=== PATIENT | male | born 1990 | race Caucasian/White ===

== ENCOUNTER 2020-03-14 11:34 | Inpatient (IN) ==
[2020-03-14] MEDS ORDERED: 0.9 % SODIUM CHLORIDE 1,000 ML IV ONE ×2 (11:58→13:46)
[2020-03-14] MEDS ORDERED: ONDANSETRON 4 MG/2 ML VIAL IV ONE (11:58)
[2020-03-14] MEDS ORDERED: KETOROLAC 30 MG/ML VIAL IV ONE (11:58)
--- NOTE | 2020-03-14 12:12 | Emergency Department Note ---
HPI General Chief complaint: Constipation Stated complaint: constipation and weakness Time Seen by Provider: 03/14/20 11:42 Source: patient Mode of arrival: ambulatory Limitations: no limitations History of Present Illness HPI Narrative: Narrative: 29-year-old male patient presents to the emergency department with chief complaint of fulminant weakness, diffuse tingling throughout his body, twisting type chest pain, nausea, vomiting, and abdominal pain x5 days. Patient mentions all of his symptoms started around Tuesday. These have progressively worsened. He was evaluated [facility]'s emergency department on 03/11 and during that visit he was worked up by the ER provider there. During his work-up he was noted to be afebrile. His laboratory studies did show an elevated WBC of 17.4 without a discernible cause. This prompted the ER provider to order a CT scan of his abdomen with contrast. This was read by matt renee radiologist as no acute abdominal pathology. A review the ER note does mention mild esophageal thickening consistent with GERD. His EKG at that time was normal. He was treated with IV rehydration, Dilaudid, Protonix, and Zofran. Patient tells me his symptoms have persisted since then. ROS: Admits to systemic illness, fever, sweats, chills. Denies headaches, tinnitus, or vision changes. Denies runny nose, sinus congestion, or cough. Denies shortness of breath. Admits to retrosternal chest pain or palpitations. Admits to abdominal pain, nausea, and vomiting, and constipation. Patient's last bowel movement was Tuesday. Admits to dysuria. Denies penile discharge, urinary frequency, or urinary urgency. Admits to generalized weakness. Admits to generalized myalgias. Related Data Home Medications Medication Instructions Recorded Confirmed omeprazole 40 mg PO ACB 03/14/20 03/14/20 Allergies Allergy/AdvReac Type Severity Reaction Status Date / Time penicillamine Allergy Unknown Unknown Verified 03/14/20 16:07 Review of Systems ROS ROS Narrative: Narrative: All systems ED: reviewed and negative except as stated. [facility] Narrative Patient History Narrative: Narrative: Medical/Surgical/Family History All Active Problems (Updated 03/14/20 @ 16:00 by iVneet Suarez PA-C) Nausea and vomiting in adult (Acute) Migraine headache (Acute) Shoulder pain (Acute) Nausea & vomiting (Acute) Abdominal pain (Acute) Constipation (Acute) Rib pain on right side (Acute) Acute hypokalemia (Acute) Acute hyponatremia (Acute) Hyperbilirubinemia (Acute) Acute renal failure (Acute) Acute dehydration (Acute) Medical History Migraine headache (Acute) Nausea and vomiting in adult (Acute) Social History Smoking Status: Former smoker Exam Narrative Narrative: Narrative: General Limitations: no limitations General appearance: Present other (Well-developed, well-nourished, 29-year-old male patient laying semirecumbent on the emergency room gurney. He is in no acu te respiratory distress. However he does appear uncomfortable. He is afebrile with normal vital signs.) Head Head: Present atraumatic and normocephalic Eye Eye: Present normal appearance, PERRL and EOMI; Absent scleral icterus and conjunctival injection ENT ENT: Present normal oropharynx and mucous membranes dry Neck Neck: Present normal inspection, full ROM and trachea midline; Absent tenderness, meningismus and lymphadenopathy Chest Chest: Present symmetric chest wall rise Respiratory Respiratory: Present normal lung sounds bilaterally; Absent respiratory distress, rales/crackles, wheezes, stridor, accessory muscle use, prolonged expiratory phase and decreased breath sounds Cardiovascular Cardiovascular: Present regular rate and normal rhythm; Absent systolic murmur and diastolic murmur Adbominal Abdominal: Present soft and tenderness; Absent distention, guarding, rebound, rigidity, organomegaly and mass Expanded Abdominal Abdominal Tenderness: Present LUQ and mild Extremities Extremities: Present normal inspection, full ROM and normal capillary refill; Absent pedal edema Back Back: Present normal inspection and full ROM; Absent CVA tenderness (R) and CVA tenderness (L) Expanded Neurological Patient oriented to: Present person, place and time Speech: Present fluid speech CRANIAL NERVES: EOM function (II, III, IV, ): Normal, facial sensation (V): Normal, facial palsy (VII): Normal, gag reflex (IX): Normal, spinal accessory function (XI): Normal and tongue deviation (XII): Normal CEREBELLAR FUNCTION: normal gait Motor strength - LUE: 5/5 Motor strength - RUE: 5/5 Motor strength - LLE: 5/5 Motor strength - RLE: 5/5 SENSORY EXAM UPPER EXTREMITY: Normal: light touch SENSORY EXAM LOWER EXTREMITY: Normal: light touch DTR: 2+: biceps (L), biceps (R), patellar (L) and patellar (R) Coma Scale Eye Opening: Spontaneous Coma Scale Motor Response: Obeys Commands Coma Scale Verbal Response: Oriented Coma Scale Total: 15 Psychiatric Psychiatric: Present normal affect and anxious Skin Skin: Present warm (WNL), dry and normal color Course Course Course Narrative: The differential diagnosis of acute weakness in the adult p christophe is rather extensive and can be broken down into the following categories: Life-threatening central causes of unilateral weakness: Ischemic stroke, intracerebral hemorrhage, subarachnoid hemorrhage. Other life-threatening causes of bilateral weakness: Brainstem stroke, spinal cord diseases, peripheral nerve diseases (Guillain-Suggs syndrome), myasthenia gravis, botulism, alcoholic myopathy. Life-threatening medical causes: Hypoglycemia and electrolyte disorders (potassium, calcium, and magnesium). Life-threatening causes of generalized weakness: Sepsis, ACS, CO2 poisoning, adrenal insufficiency. Other neurologic causes: Multiple sclerosis, hemiplegic migraine, and postictal paralysis. Other medical causes of generalized weakness: Hypothyroidism, infections, anemia, dehydration, presyncope, multiple medications (beta-blockers, diuretics, chemotherapy, opioids, and alcohol), and rheumatologic diseases. Patient's initial complaint was fulminant weakness and tingling throughout his body. However through his ROS she did complain of some chest pain and dysuria. He has no focal neurologic findings on physical exam. I do not think neuroimaging is warranted at this time. We are going to order some screening laboratory studies including ACS labs. We are going to get an EKG. She has not had a bowel movement since Tuesday but did have a CT scan of his abdomen done 3 days ago it was considered normal. We are going to get chest x-ray and a abdominal x-ray series. We are to treat his nausea with Zofran 4 mg IVP. I will treat some of his aches and pains with Toradol 30 mg IVP. Patient was given normal saline 1000 mL as a bolus. Reevaluation(s) Reevaluation #1: A review of the patient's diagnostics show the following: CBC WBC 15.3, RBC 5.88, hemoglobin 17.2, hematocrit 47.5, platelets 436. Lactic acid 2.0. CMP sodium 123, potassium 2.5, chloride 71, CO2 33, anion gap 19, BUN 40, creatinine 1.5, glucose 124, total bilirubin 2.2, AST 52, ALT 42, albumin 5.3, all others normal limits. Procalcitonin 0.08. Opponent pending. Magnesium pending. Upon reevaluation patient complaining of worsening chest pain. He describes the pain as "like someone is punching me in the heart". He does have considerable hypokalemia in conjunction with hyponatremia. He was given potassium chloride 40 mEq p.o. with an additional 20 mEq IV. He was given additional normal saline 1000 mL as a bolus. Repeat EKG was requested. ABG returned showing pH 7.54, PCO2 47, PO2 67, HCO3 40.2. Time: 13:50 Reevaluation #2: Chest and abdomen radiographs were read as negative studies. Magnesium was normal at 2.6. After reviewing all the data so far. An ultrasound of the patient's gallbladder was ordered that also was read by the radiologist as negative study. I discussed the case at length with my collaborating physician (Dr. French). At this time patient is hypokalemic, hyponatremic, and acute renal failure with an elevated total bilirubin. He is going to need admission to the hospital for further evaluation and management. Knowing this, I reached out to our hospitalist (Dr. Frazier) and discussed the case with him. At this time Dr. Frazier has consented to receive the patient here to our facility. All further treatment decisions, modalities, and ultimate patient disposition will be carried out by the hospitalist. Time: 15:58 Vital Signs Vital signs: Vital Signs Temperature 98.8 F 03/14/20 11:35 Pulse Rate 98 H 03/14/20 11:35 Respiratory Rate 18 03/14/20 11:35 Blood Pressure 156/88 03/14/20 11:35 Pulse Oximetry (%) 98 03/14/20 11:35 Temperature 98.1 F 03/14/20 20:04 Pulse Rate 70 03/14/20 20:04 Respiratory Rate 17 03/14/20 20:04 Blood Pressure 109/64 03/14/20 20:04 Pulse Oximetry (%) 100 03/14/20 20:04 [facility] Narrative Medical decision making narrative: Narrative: Lab Data Lab results reviewed: Yes I reviewed the patient's lab results. Result diagrams: 03/14/20 12:15 03/14/20 12:15 Labs: Lab Results 03/14/20 03/14/20 03/14/20 Range/Units 12:15 12:15 12:15 WBC 15.3 H (4.5-11.0) K/mcL RBC 5.88 (4.50-5.90) M/mcL Hgb 17.2 H (13.5-16.5) g/dL Hct 47.5 (41.0-55.0) % MCV 80.8 (80.0-100.0) fL MCH 29.3 (26.0-34.0) pg MCHC 36.2 H (31.0-36.0) g/dL RDW 12.1 (11.5-14.5) % Plt Count 436 (140-440) K/mcL MPV 8.9 (7.4-10.4) fL Neut % (Auto) 78.9 H (38.0-78.0) % Lymph % (Auto) 11.7 L (15.0-49.0) % Coles % (Auto) 9.2 (1.0-12.0) % Eos % (Auto) 0 (0.0-7.0) % Baso % (Auto) 0.2 (0.0-2.0) % Lymph # (Auto) 1.78 (1.50-4.80) K/mcL Coles # (Auto) 1.41 H (0.10-0.90) K/mcL Eos # (Auto) 0 (0.00-0.70) K/mcL Baso # (Auto) 0.03 (0.00-0.20) K/mcL Absolute Neutrophils 12.03 H (1.80-8.00) K/mcL ESR (0-15) mm/hr VBG Lactic Acid 2.0 (0.5-2.0) mmol/L Sodium 123 L (133-145) mmol/L Potassium 2.5 L* (3.3-5.1) mmol/L Chloride 71 L (96-108) mmol/L Carbon Dioxide 33 H (22-30) mmol/L Anion Gap 19.0 H (8.0-16.0) BUN 40 H (6-20) mg/dL Creatinine 1.5 H (0.7-1.2) mg/dL GFR Calculation 62 Glucose 124 H (70-105) mg/dL Calcium 9.6 (8.6-10.4) mg/dL Magnesium (1.6-2.5) mg/dL Total Bilirubin 2.2 H (0.1-1.0) mg/dL AST 52 H (<40) U/L ALT 42 H (<40) U/L Alkaline Phosphatase 80 (39-117) U/L Troponin T (<0.03) ng/mL C-Reactive Protein 0.20 (0.03-0.80) mg/dL Total Protein 8.3 (5.9-8.4) gm/dL Albumin 5.3 H (3.2-5.2) gm/dL Globulin 3.0 (2.2-3.7) gm/dL Albumin/Globulin Ratio 1.8 (1.0-2.3) Procalcitonin (<0.10) ng/mL Urine Color Urine Appearance (Clear) Urine pH (5.0-9.0) Ur Specific [place] (1.000-1.035) Urine Protein (Negative) mg/dL Urine Glucose (UA) (Negative) mg/dL Urine Ketones (Negative) mg/dL Urine Occult Blood (Negative) mg/dL Urine Nitrate (Negative) Urine Bilirubin (Negative) mg/dL Urine Urobilinogen mg/dL Ur Leukocyte Esterase (Negative) /ug Urine RBC (0-1) /hpf Urine WBC (0-4) /hpf Ur Squamous Epith Cells (0-4) /hpf Ur Transition Epith Cell (0-2) /hpf Urine Bacteria (0) /hpf Hyaline Casts (0-2) /lph Urine Mucus (None) /hpf Ur Culture Indicated? 03/14/20 03/14/20 03/14/20 Range/Units 12:15 12:15 12:15 WBC (4.5-11.0) K/mcL RBC (4.50-5.90) M/mcL Hgb (13.5-16.5) g/dL Hct (41.0-55.0) % MCV (80.0-100.0) fL MCH (26.0-34.0) pg MCHC (31.0-36.0) g/dL RDW (11.5-14.5) % Plt Count (140-440) K/mcL MPV (7.4-10.4) fL Neut % (Auto) (38.0-78.0) % Lymph % (Auto) (15.0-49.0) % Coles % (Auto) (1.0-12.0) % Eos % (Auto) (0.0-7.0) % Baso % (Auto) (0.0-2.0) % Lymph # (Auto) (1.50-4.80) K/mcL Coles # (Auto) (0.10-0.90) K/mcL Eos # (Auto) (0.00-0.70) K/mcL Baso # (Auto) (0.00-0.20) K/mcL Absolute Neutrophils (1.80-8.00) K/mcL ESR (0-15) mm/hr VBG Lactic Acid (0.5-2.0) mmol/L Sodium (133-145) mmol/L Potassium (3.3-5.1) mmol/L Chloride (96-108) mmol/L Carbon Dioxide (22-30) mmol/L Anion Gap (8.0-16.0) BUN (6-20) mg/dL Creatinine (0.7-1.2) mg/dL GFR Calculation Glucose (70-105) mg/dL Calcium (8.6-10.4) mg/dL Magnesium 2.6 H (1.6-2.5) mg/dL Total Bilirubin (0.1-1.0) mg/dL AST (<40) U/L ALT (<40) U/L Alkaline Phosphatase (39-117) U/L Troponin T < 0.01 (<0.03) ng/mL C-Reactive Protein (0.03-0.80) mg/dL Total Protein (5.9-8.4) gm/dL Albumin (3.2-5.2) gm/dL Globulin (2.2-3.7) gm/dL Albumin/Globulin Ratio (1.0-2.3) Procalcitonin 0.08 (<0.10) ng/mL Urine Color Urine Appearance (Clear) Urine pH (5.0-9.0) Ur Specific [place] (1.000-1.035) Urine Protein (Negative) mg/dL Urine Glucose (UA) (Negative) mg/dL Urine Ketones (Negative) mg/dL Urine Occult Blood (Negative) mg/dL Urine Nitrate (Negative) Urine Bilirubin (Negative) mg/dL Urine Urobilinogen mg/dL Ur Leukocyte Esterase (Negative) /ug Urine RBC (0-1) /hpf Urine WBC (0-4) /hpf Ur Squamous Epith Cells (0-4) /hpf Ur Transition Epith Cell (0-2) /hpf Urine Bacteria (0) /hpf Hyaline Casts (0-2) /lph Urine Mucus (None) /hpf Ur Culture Indicated? 03/14/20 03/14/20 Range/Units 12:15 13:20 WBC (4.5-11.0) K/mcL RBC (4.50-5.90) M/mcL Hgb (13.5-16.5) g/dL Hct (41.0-55.0) % MCV (80.0-100.0) fL MCH (26.0-34.0) pg MCHC (31.0-36.0) g/dL RDW (11.5-14.5) % Plt Count (140-440) K/mcL MPV (7.4-10.4) fL Neut % (Auto) (38.0-78.0) % Lymph % (Auto) (15.0-49.0) % Coles % (Auto) (1.0-12.0) % Eos % (Auto) (0.0-7.0) % Baso % (Auto) (0.0-2.0) % Lymph # (Auto) (1.50-4.80) K/mcL Coles # (Auto) (0.10-0.90) K/mcL Eos # (Auto) (0.00-0.70) K/mcL Baso # (Auto) (0.00-0.20) K/mcL Absolute Neutrophils (1.80-8.00) K/mcL ESR 1 (0-15) mm/hr VBG Lactic Acid (0.5-2.0) mmol/L Sodium (133-145) mmol/L Potassium (3.3-5.1) mmol/L Chloride (96-108) mmol/L Carbon Dioxide (22-30) mmol/L Anion Gap (8.0-16.0) BUN (6-20) mg/dL Creatinine (0.7-1.2) mg/dL GFR Calculation Glucose (70-105) mg/dL Calcium (8.6-10.4) mg/dL Magnesium (1.6-2.5) mg/dL Total Bilirubin (0.1-1.0) mg/dL AST (<40) U/L ALT (<40) U/L Alkaline Phosphatase (39-117) U/L Troponin T (<0.03) ng/mL C-Reactive Protein (0.03-0.80) mg/dL Total Protein (5.9-8.4) gm/dL Albumin (3.2-5.2) gm/dL Globulin (2.2-3.7) gm/dL Albumin/Globulin Ratio (1.0-2.3) Procalcitonin (<0.10) ng/mL Urine Color Yellow Urine Appearance Clear (Clear) Urine pH 6.0 (5.0-9.0) Ur Specific [place] 1.027 (1.000-1.035) Urine Protein 100 A (Negative) mg/dL Urine Glucose (UA) Negative (Negative) mg/dL Urine Ketones 20 A (Negative) mg/dL Urine Occult Blood 0.03 (Negative) mg/dL Urine Nitrate Negative (Negative) Urine Bilirubin Negative (Negative) mg/dL Urine Urobilinogen Negative mg/dL Ur Leukocyte Esterase Negative (Negative) /ug Urine RBC < 1 (0-1) /hpf Urine WBC 1 (0-4) /hpf Ur Squamous Epith Cells 0 (0-4) /hpf Ur Transition Epith Cell < 1 (0-2) /hpf Urine Bacteria None (0) /hpf Hyaline Casts 12 H (0-2) /lph Urine Mucus Few A (None) /hpf Ur Culture Indicated? No Radiology Data Radiology results reviewed: Yes I reviewed the patient's radiology results. Radiology results narrative: Ordering Physician: Vineet Suarez PA-C Date of Service: 03/14/20 Procedure(s): XR chest 1V portable Accession Number(s): [id number] INDICATION: Chest pain, weakness.. Abdominal pain TECHNIQUE: seated PA chest x-ray COMPARISON: Previous chest x-ray dated 04/15/2011 FINDINGS: Lungs:Lungs are negative. No focal pulmonary parenchymal infiltrate or mass Heart, vascular:No significant cardiomegaly. Pulmonary vascularity is normal. No pulmonary edema or pulmonary congestion Mediastinum, maureen:No mediastinal widening. No hilar mass Pleura:No pleural fluid. No pleural-based mass or calcification Skeletal:Negative. IMPRESSION: 1. Negative PA chest x-ray 2. Normal change since 04/15/2011 Ordering Physician: Vineet Suarez PA-C Date of Service: 03/14/20 Procedure(s): XR abdomen 2V Accession Number(s): [id number] INDICATION: Worsening Abd pain, constipation. TECHNIQUE: Supine and upright abdomen. COMPARISON: Previous CT scan dated 07/17/2018. Previous plain film examinations at 07/16/2017, 04/15/2011 FINDINGS:There is gas within the colon. No dilated gas-filled small bowel. No air-fluid levels. Fecal material is within normal limits without evidence for significant constipation There is no pneumoperitoneum. No biliary or portal venous gas. There is no pneumatosis. No focal abnormality IMPRESSION: Negative supine and upright abdomen Interpreted and Authenticated by: Pravin Salvador 03/14/20 EKG Data EKG #1: EKG attestation: Yes I reviewed and interpreted this EKG. EKG results narrative: Twelve-lead EKG obtained showing sinus rhythm at a rate of [address] segment changes. No ectopy. Patient does have prolonged QTC at 585 but other intervals are normal. EKG #2: EKG attestation: Yes I reviewed and interpreted this EKG. EKG results narrative: Twelve-lead EKG obtained showing sinus rhythm at a rate of 72 bpm. Appears to be flipped T's in leads III possibly aVF. No ectopy. No other ST segment changes. Ongoing prolonged QTC at 517. Other normal intervals. Discharge Plan Patient/Caregiver Discharge Instructions Pt seen by [employer]ER/PA only: Yes Clinical Impression: Acute hypokalemia, Acute hyponatremia, Hyperbilirubinemia, Acute dehydration Nausea & vomiting Qualifiers: Vomiting type: unspecified Vomiting Intractability: non-intractable Qualified Code(s): R11.2 - Nausea with vomiting, unspecified Acute renal failure Qualifiers: Acute renal failure type: unspecified Qualified Code(s): N17.9 - Acute kidney failure, unspecified Patient Disposition: Xfer As Inpt ([facility]) Condition: Serious Discharge Date/Time: 03/14/20 16:35
--- NOTE | 2020-03-14 12:59 | XRay Report ---
INDICATION: Chest pain, weakness.. Abdominal pain TECHNIQUE: seated PA chest x-ray COMPARISON: Previous chest x-ray dated 04/15/2011 FINDINGS: Lungs:Lungs are negative. No focal pulmonary parenchymal infiltrate or mass Heart, vascular:No significant cardiomegaly. Pulmonary vascularity is normal. No pulmonary edema or pulmonary congestion Mediastinum, maureen:No mediastinal widening. No hilar mass Pleura:No pleural fluid. No pleural-based mass or calcification Skeletal:Negative. IMPRESSION: 1. Negative PA chest x-ray 2. Normal change since 04/15/2011 Interpreted and Authenticated by: Pravin Salvador 03/14/20
--- NOTE | 2020-03-14 13:08 | XRay Report ---
INDICATION: Worsening Abd pain, constipation. TECHNIQUE: Supine and upright abdomen. COMPARISON: Previous CT scan dated 07/17/2018. Previous plain film examinations at 07/16/2017, 04/15/2011 FINDINGS:There is gas within the colon. No dilated gas-filled small bowel. No air-fluid levels. Fecal material is within normal limits without evidence for significant constipation There is no pneumoperitoneum. No biliary or portal venous gas. There is no pneumatosis. No focal abnormality IMPRESSION: Negative supine and upright abdomen Interpreted and Authenticated by: Pravin Salvador 03/14/20
[2020-03-14 13:23] LABS: Basophils # (Auto) 0.03 K/mcL (0.00-0.20); Basophils % (Auto) 0.2 % (0.0-2.0); Eosinophils # (Auto) 0 K/mcL (0.00-0.70); Eosinophils % (Auto) 0 % (0.0-7.0); Hematocrit 47.5 % (41.0-55.0); Hemoglobin 17.2 g/dL (13.5-16.5); Lymphocytes # (Auto) 1.78 K/mcL (1.50-4.80); Lymphocytes % (Auto) 11.7 % (15.0-49.0); Mean Cell Volume 80.8 fL (80.0-100.0); Mean Corpuscular HGB Conc 36.2 g/dL (31.0-36.0); Mean Platelet Volume 8.9 fL (7.4-10.4); Monocytes # (Auto) 1.41 K/mcL (0.10-0.90); Monocytes % (Auto) 9.2 % (1.0-12.0); Neutrophils % (Auto) 78.9 % (38.0-78.0); Platelet Count 436 K/mcL (140-440); RBC 5.88 M/mcL (4.50-5.90); Red Cell Distribution Width 12.1 % (11.5-14.5); WBC 15.3 K/mcL (4.5-11.0)
[2020-03-14 13:26] LABS: ALT/SGPT 42 U/L (<40); AST/SGOT 52 U/L (<40); Albumin 5.3 gm/dL (3.2-5.2); Albumin/Globulin Ratio 1.8 (1.0-2.3); Alkaline Phosphatase 80 U/L (39-117); Bilirubin,Total 2.2 mg/dL (0.1-1.0); Blood Urea Nitrogen 40 mg/dL (6-20); Calcium 9.6 mg/dL (8.6-10.4); Carbon Dioxide 33 mmol/L (22-30); Chloride 71 mmol/L (96-108); Glomerular Filtration Rate 62; Glucose 124 mg/dL (70-105)
[2020-03-14] MEDS ORDERED: POTASSIUM CHLORIDE 20 MEQ TABLET PO ONE (13:26)
[2020-03-14] MEDS ORDERED: POTASSIUM CHLORIDE 20 MEQ in DEXTROSE 5% IN WATER 250 ML IV ONE (13:26)
--- NOTE | 2020-03-14 15:11 | Ultrasound Report ---
INDICATION: Hyperbilirubinemia, elevated LFTs, abd pain. TECHNIQUE: Grayscale and color flow Doppler spectral imaging COMPARISON: Previous CT scan dated 07/17/2018 FINDINGS: Gallbladder:Negative. No cholelithiasis. No gallbladder wall thickening or pericholecystic fluid Common bile duct:No intra or extrahepatic bile duct dilatation.. Common bile duct measures3 mm Liver:No solid or cystic hepatic mass. Liver contour is smooth. No ascites.. Liver [id number] cm Portal vein:Normal hepatopedal portal venous flow Pancreas:Visualized portions of the pancreas are normal IMPRESSION: Negative gallbladder ultrasound Interpreted and Authenticated by: Pravin Salvador 03/14/20
[2020-03-14 15:25] LABS: Appearance,Urine CLEAR (Clear); Bilirubin,Urine Negative (Negative); Color,Urine YELLOW; Culture Indicated,Urine No; Glucose,Urine (UA) Negative (Negative); Ketones,Urine 20 mg/dL (Negative); Leukocyte Esterase,Urine Negative /ug (Negative); Mucus,Urine FEW /hpf; Nitrate,Urine Negative (Negative); Protein,Urine 100 mg/dL (Negative); Specific Gravity,Urine 1.027 (1.000-1.035); Urine Blood 0.03 mg/dL (Negative); Urine Hyaline Cast 12 /lph (0-2); Urine RBC < 1 /hpf (0-1); Urine Squamous Epithelial Cell 0 /hpf (0-4); Urine Transitional Epi Cells < 1 /hpf (0-2); Urine WBC 1 /hpf (0-4); Urobilinogen,Urine Negative
[2020-03-14] MEDS ORDERED: 0.9 % SODIUM CHLORIDE 1,000 ML IV SCH ×2 (15:30→16:42)
[2020-03-14] MEDS ORDERED: PHENobarb/HYOSCY/ATROPINE/SCOP 1 DOSE BOTTLE PO ONE (15:40)
--- NOTE | 2020-03-14 15:56 | Internal Med History&Physical ---
HPI History of Present Illness Patient information: Note initiated : 03/14/20 at 3:56 pm Service Date, if different from initiated Date: [] Patient: Lefty Kam 29 y/o M admitted on for constipation and weakness. Chief Complaint: Increasing weakness, nausea and dizziness History of present illness: Mr. Kam is a 29 year old M who works in [employer]. He is in his baseline state of health until the onset of symptoms that started roughly 5 to 6 days ago with increasing nausea, abdominal pain vomiting. He also is endorses associated low-grade fever, chills. He was evaluated at [place] on the and was found to have a white count over 17.6 however following negative abdominal imaging he was discharged home as he felt better after treatment. However over the next 2 days he continued to deteriorate with worsening symptoms, loss of appetite, weakness lightheadedness dizziness he presents to the ER the second time today. Initial work-up was consistent with leukocytosis/elevated LFTs and bilirubin. Abdominal ultrasound was unremarkable. He denies substance abuse. Denies bloody stool, bloody emesis, headache or photophobia. Subsequently hospitalist service was consulted At the time of my evaluation patient is anxious. He was able to endorse history as above. He [place] recent travel other than visiting [place] Den[place] sick contacts. Denies changes in medications or taking [id number] new medications. Patient was thereafter admitted to unit for evaluation of sepsis/elevated bilirubin. Shortly after admission patient passed out in the bathroom and was noted by staff with generalized tonic-clonic seizure. Patient was moved to ICU. Started on Ativan 4 mg load along with Keppra/oral suctioning. Stat labs were ordered. CT head/chest imaging/ABG/vital profile. 2 g magnesium/calcium infusion. Patient responded well and became seizure-free after a brief episode. He is currently postictal Review of systems 10 point review system was performed and is negative except for ones cussed above PFSH PFSH All Active Problems (Updated 03/14/20 @ 16:00 by Vineet Suarez PA-C) Nausea and vomiting in adult (Acute) Migraine headache (Acute) Shoulder pain (Acute) Nausea & vomiting (Acute) Abdominal pain (Acute) Constipation (Acute) Rib pain on right side (Acute) Acute hypokalemia (Acute) Acute hyponatremia (Acute) Hyperbilirubinemia (Acute) Acute renal failure (Acute) Acute dehydration (Acute) Medical History Migraine headache (Acute) Nausea and vomiting in adult (Acute) Social History smoking status: Never smoker MEDS/ALLERGIES Home Medications and Allergies Home Medications Medication Instructions Recorded Confirmed Type omeprazole 40 mg PO ACB 03/14/20 03/14/20 History Allergies Allergy/AdvReac Type Severity Reaction Status Date / Time penicillamine Allergy Unknown Unknown Verified 03/14/20 16:07 EXAM Constitutional Vitals: Temp Pulse Resp BP Pulse Ox 98.2 F 76 20 144/70 96 03/14/20 12:53 03/14/20 15:15 03/14/20 15:15 03/14/20 15:15 03/14/20 15:15 Patient postictal/confused Head normocephalic Oral cavity moist No ear nose discharge Eye movement symmetrical Neck supple no lymphadenopathy S1-S2 regular Nonlabored breathing Nondistended nontender abdomen Lower extremity no cyanosis clubbing or joint swelling Skin no suspicious lesion Psych anxious/postictal Neuro moving all 4 extremities DATA Data Completed and Pending Labs: Labs from last 24 hours 03/14/20 03/14/20 03/14/20 13:20 12:15 12:15 WBC RBC Hgb Hct MCV MCH MCHC RDW Plt Count MPV Neut % (Auto) Lymph % (Auto) [place] % (Auto) Eos % (Auto) Baso % (Auto) Lymph # (Auto) [place] # (Auto) Eos # (Auto) Baso # (Auto) Absolute Neutrophils VBG Lactic Acid Sodium Potassium Chloride Carbon Dioxide Anion Gap BUN Creatinine GFR Calculation Glucose Calcium Magnesium 2.6 H Total Bilirubin AST ALT Alkaline Phosphatase Troponin T C-Reactive Protein Total Protein Albumin Globulin Albumin/Globulin Ratio Procalcitonin 0.08 Urine Color Yellow Urine Appearance Clear Urine pH 6.0 Ur Specific [place] 1.027 Urine Protein 100 A Urine Glucose (UA) Negative Urine Ketones 20 A Urine Occult Blood 0.03 Urine Nitrate Negative Urine Bilirubin Negative Urine Urobilinogen Negative Ur Leukocyte Esterase Negative Urine RBC < 1 Urine WBC 1 Ur Squamous Epith Cells 0 Ur Transition Epith Cell < 1 Urine Bacteria None Hyaline Casts 12 H Urine Mucus Few A Ur Culture Indicated? No 03/14/20 03/14/20 03/14/20 12:15 12:15 12:15 WBC RBC Hgb Hct MCV MCH MCHC RDW Plt Count MPV Neut % (Auto) Lymph % (Auto) [place] % (Auto) Eos % (Auto) Baso % (Auto) Lymph # (Auto) [place] # (Auto) Eos # (Auto) Baso # (Auto) Absolute Neutrophils VBG Lactic Acid 2.0 Sodium 123 L Potassium 2.5 L* Chloride 71 L Carbon Dioxide 33 H Anion Gap 19.0 H BUN 40 H Creatinine 1.5 H GFR Calculation 62 Glucose 124 H Calcium 9.6 Magnesium Total Bilirubin 2.2 H AST 52 H ALT 42 H Alkaline Phosphatase 80 Troponin T Pending C-Reactive Protein 0.20 Total Protein 8.3 Albumin 5.3 H Globulin 3.0 Albumin/Globulin Ratio 1.8 Procalcitonin Urine Color Urine Appearance Urine pH Ur Specific [place] Urine Protein Urine Glucose (UA) Urine Ketones Urine Occult Blood Urine Nitrate Urine Bilirubin Urine Urobilinogen Ur Leukocyte Esterase Urine RBC Urine WBC Ur Squamous Epith Cells Ur Transition Epith Cell Urine Bacteria Hyaline Casts Urine Mucus Ur Culture Indicated? 03/14/20 12:15 WBC 15.3 H RBC 5.88 Hgb 17.2 H Hct 47.5 MCV 80.8 MCH 29.3 MCHC 36.2 H RDW 12.1 Plt Count 436 MPV 8.9 Neut % (Auto) 78.9 H Lymph % (Auto) 11.7 L [place] % (Auto) 9.2 Eos % (Auto) 0 Baso % (Auto) 0.2 Lymph # (Auto) 1.78 [place] # (Auto) 1.41 H Eos # (Auto) 0 Baso # (Auto) 0.03 Absolute Neutrophils 12.03 H VBG Lactic Acid Sodium Potassium Chloride Carbon Dioxide Anion Gap BUN Creatinine GFR Calculation Glucose Calcium Magnesium Total Bilirubin AST ALT Alkaline Phosphatase Troponin T C-Reactive Protein Total Protein Albumin Globulin Albumin/Globulin Ratio Procalcitonin Urine Color Urine Appearance Urine pH Ur Specific [place] Urine Protein Urine Glucose (UA) Urine Ketones Urine Occult Blood Urine Nitrate Urine Bilirubin Urine Urobilinogen Ur Leukocyte Esterase Urine RBC Urine WBC Ur Squamous Epith Cells Ur Transition Epith Cell Urine Bacteria Hyaline Casts Urine Mucus Ur Culture Indicated? A/P Narrative A/P Narrative: * Sepsis unclear etiology. Abdominal imaging inconclusive. Pancultures/antibiotic coverage. Rule out CLINICAL ASSESSMENT MANAGER infection. Lumbar puncture if fever, photophobia or neck stiffness. Neuroimaging * Generalized tonic-clonic seizure-status post 4 mg Ativan/Keppra load, magnesium/calcium infusion. Stat blood gas/drug screen/biochemical profile/head CT ordered, ICU admission, neurochecks * Acute change in mental status secondary to seizure/sepsis endorgan dysfunction. * Hypokalemia 2.5, start IV and oral replacement * Hyponatremia likely secondary to solute loss from nausea vomiting. Every 4 sodium checks and target sodium rise 12 per 24 hours * Elevated bilirubin likely sepsis endorgan dysfunction, check acute hepatitis panel * acute kidney injury likely sepsis endorgan dysfunction Plan * ICU admission, [place] 2 score 16 * 4 hourly sodium check * Neuroimaging with MR head/CT * Lumbar puncture if indicated * Electrolyte replacement * Keppra load * Antibiotic coverage * Neurochecks/Seizure watch Time spent in excess of 140 minutes on management of generalized tonic-clonic seizures/admission to the hospital, this includes 75 minutes critical care time Time Spent With Patient Time: Total time spent is greater than 50% in coordination of care (as documented) at patient's floor/unit and/or counseling patient:
[2020-03-14] MEDS ORDERED: MELATONIN 3 MG TABLET PO PRN (16:42)
[2020-03-14] MEDS ORDERED: ONDANSETRON 4 MG ODT TABLET SL PRN (16:42)
[2020-03-14] MEDS ORDERED: ACETAMINOPHEN 650 MG/65 ML BOTTLE IV PRN (16:42)
[2020-03-14] MEDS ORDERED: POLYETHYLENE GLYCOL 3350 17 GM PACKET PO PRN (16:42)
[2020-03-14] MEDS ORDERED: BISACODYL 10 MG SUPP.RECT PR PRN (16:42)
[2020-03-14] MEDS ORDERED: MAGNESIUM SULFATE 2 GM/50 ML BAG IV PRN (16:42)
[2020-03-14] MEDS ORDERED: ACETAMINOPHEN 325 MG TABLET PO PRN (16:42)
[2020-03-14] MEDS: ONDANSETRON 4 MG/2 ML VIAL IV PRN ×2 (17:32→23:37)
[2020-03-14] MEDS: LACTATED RINGERS 1,000 ML IV SCH (17:51)
[2020-03-14] MEDS ORDERED: PIPERACILLIN SODIUM/TAZOBACTAM 3.375 GM in DEXTROSE 5% IN WATER 50 ML IV SCH (18:00)
[2020-03-14] MEDS ORDERED: LORazepam 2 MG/ML VIAL IV ONE (18:28)
[2020-03-14] MEDS ORDERED: levETIRAcetam 500 MG in 0.9 % SODIUM CHLORIDE 100 ML IV ONE (18:28)
[2020-03-14] MEDS: 0.9 % SODIUM CHLORIDE 10 ML SYRINGE IV SCH ×6 (18:30→23:37)
[2020-03-14] MEDS ORDERED: MAGNESIUM SULFATE 2 GM/50 ML BAG IV ONE (18:33)
[2020-03-14] MEDS ORDERED: LORazepam 2 MG/ML VIAL ONE (18:34)
[2020-03-14] MEDS ORDERED: CALCIUM GLUCONATE 4.65 MEQ/10 ML VIAL IV ONE (18:35)
[2020-03-14] MEDS ORDERED: CALCIUM GLUCONATE 4.65 MEQ/10 ML VIAL ONE (18:51)
[2020-03-14] MEDS ORDERED: CALCIUM GLUCONATE 4.65 MEQ in DEXTROSE 5% IN WATER 50 ML IV ONE (19:00)
--- NOTE | 2020-03-14 19:39 | XRay Report ---
INDICATION: r/o aspiration TECHNIQUE: AP portable upright chest x-ray COMPARISON: Previous examination dated 03/14/2020 FINDINGS: Lungs:Lungs are negative. No focal pulmonary parenchymal infiltrate or mass Heart, vascular:No significant cardiomegaly. Pulmonary vascularity is normal. No pulmonary edema or pulmonary congestion Mediastinum, maureen:No mediastinal widening. No hilar mass Pleura:No pleural fluid. No pleural-based mass or calcification Skeletal:Negative. IMPRESSION: 1. Negative AP chest x-ray 2. No significant interval change since 03/14/2020 Interpreted and Authenticated by: Pravin Salvador 03/14/20
--- NOTE | 2020-03-14 19:41 | Cat Scan Report ---
INDICATION: seizures COMPARISON: None. TECHNIQUE: Axial noncontrast-enhanced images through the brain. Sagittally and coronally reformatted images. FINDINGS: Cerebral hemispheres:Negative. No intra-axial abnormality. No intra-axial hematoma. No localized mass effect. Brain volume is within normal limits. No hydrocephalus Brainstem and cerebellum:No intra-axial abnormality Extra-axial:No acute hemorrhage. No subdural or epidural hematoma. No subarachnoid hemorrhage. Basilar cisterns are normal Calvarial:No calvarial fracture. No lytic lesion Temporal bones are negative. No destructive lesions Soft tissue, orbits, sinuses:Orbits and visualized facial soft tissues and paranasal sinuses are negative IMPRESSION: Negative noncontrast enhanced brain CT scan The exam was performed using radiation dose optimization techniques including, but not limited to, automated exposure control, adjustment of the mA and/or kV according to patient size and use of iterative reconstruction technique. Interpreted and Authenticated by: Pravin Salvador 03/14/20
[2020-03-14 20:54] LABS: ALT/SGPT 31 U/L (<40); AST/SGOT 42 U/L (<40); Albumin 4.1 gm/dL (3.2-5.2); Albumin/Globulin Ratio 1.9 (1.0-2.3); Alkaline Phosphatase 61 U/L (39-117); Bilirubin,Direct 0.3 mg/dL (<0.3); Bilirubin,Total 1.5 mg/dL (0.1-1.0); Blood Urea Nitrogen 30 mg/dL (6-20); Calcium 7.9 mg/dL (8.6-10.4); Carbon Dioxide 30 mmol/L (22-30); Chloride 84 mmol/L (96-108); Globulin 2.2 gm/dL (2.2-3.7); Glomerular Filtration Rate 74; Glucose 118 mg/dL (70-105); Lactate Dehydrogenase 244 U/L (135-225); Phosphorous 3.2 mg/dL (2.5-4.5); Triglycerides 74 mg/dL (<150); Uric Acid 10.1 mg/dL (2.5-8.0)
[2020-03-14 21:00] LABS: Hepatitis B Surface Antigen Negative (Negative); Hepatitis C Virus Antibody Non-Reactive (Non-Reactive)
[2020-03-14] MEDS: DOCUSATE SODIUM 100 MG CAPSULE PO SCH (21:19)
[2020-03-14] MEDS: SENNOSIDES/DOCUSATE SODIUM 1 TAB TABLET PO SCH (21:19)
[2020-03-14] MEDS: POTASSIUM CHLORIDE 20 MEQ PACKET PO PRN (21:20)
[2020-03-14] MEDS: CEFEPIME 2 GM VIAL IV SCH (22:17)
[2020-03-14] MEDS: POTASSIUM CHLORIDE 20 MEQ/10 ML VIAL IV ONE ×2 (22:49→23:11)
[2020-03-14] MEDS: POTASSIUM CHLORIDE 40 MEQ in DEXTROSE 5% IN WATER 500 ML IV PRN (23:10)
[2020-03-15 00:25] LABS: Amphetamine Screen,Urine None detected; Barbiturate Screen,Urine None detected; Benzodiazepines Screen,Urine None detected; Cannabinoid Screen,Urine Suspect Positive; Cocaine Screen,Urine None detected; Opiate Screen,Urine None detected; Oxycodone, Urine Screen None detected; Phencyclidine Screen,Urine None detected
[2020-03-15] MEDS: LACTATED RINGERS 1,000 ML IV SCH ×3 (03:22→13:22)
[2020-03-15] MEDS: 0.9 % SODIUM CHLORIDE 10 ML SYRINGE IV SCH ×7 (04:40→23:29)
[2020-03-15] MEDS: ONDANSETRON 4 MG/2 ML VIAL IV PRN ×2 (04:40→08:06)
[2020-03-15 05:01] LABS: Basophils # (Auto) 0.02 K/mcL (0.00-0.20); Basophils % (Auto) 0.2 % (0.0-2.0); Eosinophils # (Auto) 0.02 K/mcL (0.00-0.70); Eosinophils % (Auto) 0.2 % (0.0-7.0); Hematocrit 39.4 % (41.0-55.0); Hemoglobin 13.5 g/dL (13.5-16.5); Lymphocytes # (Auto) 1.99 K/mcL (1.50-4.80); Lymphocytes % (Auto) 17.7 % (15.0-49.0); Mean Cell Volume 84.9 fL (80.0-100.0); Mean Corpuscular HGB Conc 34.3 g/dL (31.0-36.0); Mean Platelet Volume 8.9 fL (7.4-10.4); Monocytes # (Auto) 1.17 K/mcL (0.10-0.90); Monocytes % (Auto) 10.4 % (1.0-12.0); Neutrophils % (Auto) 71.5 % (38.0-78.0); Platelet Count 306 K/mcL (140-440); RBC 4.64 M/mcL (4.50-5.90); Red Cell Distribution Width 12.5 % (11.5-14.5); WBC 11.2 K/mcL (4.5-11.0)
[2020-03-15] MEDS: CEFEPIME 2 GM VIAL IV SCH ×3 (05:41→21:58)
[2020-03-15 05:52] LABS: ALT/SGPT 29 U/L (<40); AST/SGOT 36 U/L (<40); Albumin 3.8 gm/dL (3.2-5.2); Albumin/Globulin Ratio 1.8 (1.0-2.3); Alkaline Phosphatase 54 U/L (39-117); Bilirubin,Direct 0.3 mg/dL (<0.3); Bilirubin,Total 1.2 mg/dL (0.1-1.0); Blood Urea Nitrogen 25 mg/dL (6-20); Calcium 8.4 mg/dL (8.6-10.4); Carbon Dioxide 32 mmol/L (22-30); Chloride 90 mmol/L (96-108); Globulin 2.1 gm/dL (2.2-3.7); Glomerular Filtration Rate 81; Glucose 121 mg/dL (70-105); Lactate Dehydrogenase 218 U/L (135-225); Triglycerides 68 mg/dL (<150); Uric Acid 8.3 mg/dL (2.5-8.0)
[2020-03-15] MEDS: MULTIVIT,THER IRON,CA,FA & MIN 1 TABLET PO SCH (08:07)
[2020-03-15] MEDS: POTASSIUM CHLORIDE 20 MEQ PACKET PO PRN (08:07)
[2020-03-15] MEDS: DOCUSATE SODIUM 100 MG CAPSULE PO SCH ×2 (08:08→21:04)
[2020-03-15] MEDS: POTASSIUM CHLORIDE 40 MEQ in DEXTROSE 5% IN WATER 500 ML IV PRN (08:23)
[2020-03-15] MEDS: levETIRAcetam 500 MG in 0.9 % SODIUM CHLORIDE 100 ML IV SCH ×2 (09:54→21:04)
--- NOTE | 2020-03-15 12:01 | Internal Med Progress Note ---
SUBJECTIVE Subjective Patient information: Note initiated : 03/15/20 at 11:55 am Service Date, if different from initiated Date: [] Patient: Lefty Kam 29 y/o M admitted on 03/14/20 for constipation and weakness. Chief Complaint: [] Interval history: History of present illness: Mr. Kam is a 29 year old M who works in [employer]. He is in his baseline state of health until the onset of symptoms that started roughly 5 to 6 days ago with increasing nausea, abdominal pain vomiting. He also is endorses associated low-grade fev er, chills. He was evaluated at [place] on the and was found to have a white count over 17.6 however without negative abdominal imaging he was discharged home following initial treatment. He however continued to deteriorate with worsening symptoms, loss of appetite, weakness lightheadedness dizziness he presents to the ER the second time today. Initial work-up was consistent with leukocytosis/elevated LFTs and bilirubin. Abdominal ultrasound was unremarkable. He denies substance abuse. Denies bloody stool, bloody emesis, headache or photophobia. Subsequently hospitalist service was consulted At the time of my evaluation patient is anxious. He was able to endorse history as above. He denies recent travel other than visiting [place] Denies sick contacts. Denies changes in medications or taking [id number] new medications. Patient was thereafter admitted to unit for evaluation of sepsis/elevated bilirubin. Shortly after admission patient passed out in the bathroom and was noted by staff with generalized tonic-clonic seizure. Patient was moved to ICU. Started on Ativan 4 mg load along with Keppra/oral suctioning. Stat labs were ordered. CT head/chest imaging/ABG/vital profile. 2 g magnesium/calcium infusion. Patient responded well and became seizure-free after a brief episode. He is currently postictal 03/15-patient clinically improving with improved endorgan dysfunction including mental status/downtrending bilirubin/downtrending creatinine. Complains of urinary incontinence. Persistent nausea however denies photophobia headache or fever. Stable hemodynamics. CT head unremarkable for acute process. X-ray chest negative. White count downtrending now 11,000, sodium up to 131, potass ium 3.3 on replacement, bicarbonate at 32 hyperchloremic nongap acidosis secondary to excessive vomiting. Constitutional Vitals: Vital Signs Temp Pulse Resp BP Pulse Ox 97.3 F 79 20 142/80 97 03/15/20 08:02 03/15/20 10:00 03/15/20 10:00 03/15/20 10:00 03/15/20 10:00 Period Temp Pulse Resp BP Sys/Mathias Pulse Ox Last 24 Hr 97.3 F-99.2 F 66-101 8-28 105-155/58-99 88-100 Intake and Output 03/14/20 03/15/20 03/15/20 21:59 05:59 13:59 Intake Total 3660 2240 1008 Output Total 401 1900 750 Balance 3259 340 258 Weight 98.43 kg 98.52 kg 98.52 kg Patient Weight 03/16/20 04:59 Weight 98.52 kg respond to commands Intermittently confused No telemetry events No lymphedema Intake & Output: Intake & Output 03/14/20 03/15/20 03/15/20 21:59 05:59 13:59 Intake Total 3660 2240 1008 Output Total 401 1900 750 Balance 3259 340 258 Weight 98.43 kg 98.52 kg 98.52 kg Intake: IV 3660 1520 708 Sodium Chloride 0.9% 1,000 ml @ 3130 Wide Open IV BOLUS OLGA Rx#: [id number] Lactated Ringers 1,000 ml @ 150 1000 708 mls/hr IV .Q6H40M OLGA Rx#: [id number] Zosyn 3.375 gm In Dextrose 5% 50 in Water 50 ml @ 100 mls/hr IV Q6H OLGA Rx#:[id number] Potassium Chloride 20 Meq In 260 Dextrose 5% in Water 250 ml @ 130 mls/hr IV ONCE ONE Rx#: [id number] Potassium Chloride 40 Meq In 520 Dextrose 5% in Water 500 ml @ 130 mls/hr IV UD PRN Rx#: [id number] Keppra 500 mg In Sodium 105 Chloride 0.9% 100 ml @ 200 mls/ hr IV ONCE ONE Rx#:[id number] Oral 720 300 Output: Urine Catheter Amount 1100 Void Amount 400 350 500 # of times incontinent of urine 1 Emesis 300 250 Estimated Blood Loss 150 Other: Percent of Meal Consumed held - N/V Urine Appearance Clear Clear Clear Uretheral ([place]) Clear Urine Color Light Magalie Bright Yellow Dark Yellow Uretheral ([place]) Bright Yellow Urine Odor Normal Normal # Emeses 2 OBJ DATA Labs CBC & Chem 7: 03/15/20 04:10 03/15/20 08:05 Labs: Abnormal Lab Results 03/15/20 03/15/20 03/15/20 08:05 04:10 04:10 WBC 11.2 H Hgb Hct 39.4 L MCHC Neut % (Auto) Lymph % (Auto) [place] # (Auto) 1.17 H Absolute Neutrophils 8.03 H Sodium 131 L 130 L Potassium Chloride Carbon Dioxide Anion Gap BUN Creatinine Glucose Uric Acid Calcium Magnesium Total Bilirubin Direct Bilirubin AST ALT Lactate Dehydrogenase Albumin Globulin Urine Protein Urine Ketones Hyaline Casts Urine Mucus U Marijuana (THC) Screen 03/15/20 03/15/20 03/14/20 04:10 00:12 22:00 WBC Hgb Hct MCHC Neut % (Auto) Lymph % (Auto) [place] # (Auto) Absolute Neutrophils Sodium 130 L 128 L Potassium Chloride 90 L Carbon Dioxide 32 H Anion Gap BUN 25 H Creatinine Glucose 121 H Uric Acid 8.3 H Calcium 8.4 L Magnesium 3.1 H Total Bilirubin 1.2 H Direct Bilirubin 0.3 H AST ALT Lactate Dehydrogenase Albumin Globulin 2.1 L Urine Protein Urine Ketones Hyaline Casts Urine Mucus U Marijuana (THC) Screen Suspect positive A 03/14/20 03/14/20 03/14/20 21:09 18:53 13:20 WBC Hgb Hct MCHC Neut % (Auto) Lymph % (Auto) [place] # (Auto) Absolute Neutrophils Sodium 129 L 127 L Potassium 2.8 L* Chloride 84 L Carbon Dioxide Anion Gap BUN 30 H Creatinine 1.3 H Glucose 118 H Uric Acid 10.1 H Calcium 7.9 L Magnesium Total Bilirubin 1.5 H Direct Bilirubin 0.3 H AST 42 H ALT Lactate Dehydrogenase 244 H Albumin Globulin Urine Protein 100 A Urine Ketones 20 A Hyaline Casts 12 H Urine Mucus Few A U Marijuana (THC) Screen 03/14/20 03/14/20 03/14/20 12:15 12:15 12:15 WBC 15.3 H Hgb 17.2 H Hct MCHC 36.2 H Neut % (Auto) 78.9 H Lymph % (Auto) 11.7 L [place] # (Auto) 1.41 H Absolute Neutrophils 12.03 H Sodium 123 L Potassium 2.5 L* Chloride 71 L Carbon Dioxide 33 H Anion Gap 19.0 H BUN 40 H Creatinine 1.5 H Glucose 124 H Uric Acid Calcium Magnesium 2.6 H Total Bilirubin 2.2 H Direct Bilirubin AST 52 H ALT 42 H Lactate Dehydrogenase Albumin 5.3 H Globulin Urine Protein Urine Ketones Hyaline Casts Urine Mucus U Marijuana (THC) Screen Meds: Medications Acetaminophen (Tylenol) 650 mg PO Q4-6HP PRN; Protocol PRN Reason: Per Pain Protocol/Fever > 101 Bisacodyl (Dulcolax) 10 mg IA Q2-3DAYS PRN PRN Reason: Constipation Cefepime HCl (Maxipime) 2 gm IV Q8H [facility]; Protocol Last Admin: 03/15/20 05:41 Dose: 2 gm Documented by: Docusate Sodium (Colace) 100 mg PO BID [facility] Last Admin: 03/15/20 08:08 Dose: 100 mg Documented by: Potassium Chloride 40 meq/ (Dextrose) 520 mls @ 130 mls/hr IV UD PRN PRN Reason: K+ = or < 3.5 Last Admin: 03/15/20 08:23 Dose: 130 mls/hr Documented by: Acetaminophen (Ofirmev) 650 mg in 65 mls @ 130 mls/hr IV Q6HP PRN; Protocol PRN Reason: Per Pain Protocol/Fever > 101 Last Infusion: 03/14/20 18:10 Dose: Infused Documented by: Magnesium Sulfate (Magnesium Sulfate) 2 gm in 50 mls @ 50 mls/hr IV UD PRN PRN Reason: MG = or < 1.7 Lactated Ringer's (Lactated Ringers) 1,000 mls @ 150 mls/hr IV .Q6H40M [facility] Stop: 03/15/20 12:41 Last Admin: 03/15/20 08:05 Dose: 150 mls/hr Documented by: Levetiracetam 500 mg/ Sodium (Chloride) 105 mls @ 200 mls/hr IV Q12H [facility] Last Admin: 03/15/20 09:54 Dose: 200 mls/hr Documented by: Iron Carb/Multivit/[place]/Folic Acid (Multivitamin W/Minerals) 1 tab PO DAILY [facility] Last Admin: 03/15/20 08:07 Dose: 1 tab Documented by: Melatonin (Melatonin 3mg Tablet) 3 mg PO HSP PRN PRN Reason: Insomnia Ondansetron HCl (Zofran Odt) 4 mg SL Q4-6HP PRN; Protocol PRN Reason: Nausea And Vomiting Ondansetron HCl (Zofran) 4 mg IV Q4-6HP PRN; Protocol PRN Reason: Nausea And Vomiting Last Admin: 03/15/20 08:06 Dose: 4 mg Documented by: Polyethylene Glycol (Miralax) 17 gm PO DAILYP PRN PRN Reason: Constipation Potassium Chloride (Klor-Con) 40 meq PO DAILYP PRN PRN Reason: K+ < 3.5 Last Admin: 03/15/20 08:07 Dose: 40 meq Documented by: Senna/Docusate Sodium (Senna Plus Tablet) 1 tab PO HS OLGA Last Admin: 03/14/20 21:19 Dose: 1 tab Documented by: Sodium Chloride (Saline Flush) 10 ml IV Q8 OLGA Last Admin: 03/15/20 05:43 Dose: 10 ml Documented by: A/P Narrative A/P Narrative: * Sepsis unclear etiology. Abdominal imaging inconclusive. Pancultures/antibiotic coverage. Clinically improving with improved white count. No fever, headache or photophobia or neck stiffness * Generalized tonic-clonic seizure-status post 4 mg Ativan/Keppra load, magnesium/calcium infusion. Continue Keppra. MRI brain pending. * Metabolic alkalosis secondary to excessive vomiting. Bicarb 32. * Acute change in mental status secondary to seizure/sepsis endorgan dysfunction. Clinically resolved now at baseline * Hypokalemia 3.3 with replacement. Likely secondary to potassium loss from vomiting and metabolic alkalosis with intracellular flux * Hyponatremia likely secondary to solute loss from nausea vomiting. Sodium rise at goal * Elevated bilirubin likely sepsis endorgan dysfunction, negative acute hepatitis panel, bilirubin normalized * acute kidney injury likely sepsis endorgan dysfunction -creatinine improved down to 1.1. Plan * Continue sodium checks * Electrolyte replacement * Await MRI brain * Continue Keppra * De-escalate antibiotic if no evidence of infection * Continue seizure watch CC time 35 minutes Time Spent With Patient Time: Total time spent is greater than 50% in coordination of care (as documented) at patient's floor/unit and/or counseling patient: QUALITY VTE Deep Vein Thrombosis/Pulmonary Embolism Present on Admission: No
--- NOTE | 2020-03-15 12:47 | Magnetic Resonance Report ---
INDICATION: new onset seizure COMPARISON: Brain CT scan dated 03/14/2020 TECHNIQUE: Precontrast and postcontrast brain MRI scan. Sagittal precontrast T1 FLAIR. Axial precontrast DWI, T1 FLAIR, T2 FLAIR, T2, GRE, T1 FSE. Postcontrast coronal and axial T1 weighted images.15 mL MultiHance injected intravenously. FINDINGS: Cerebral hemispheres:No restricted diffusion. No acute infarction. No susceptibility. No hemorrhagic abnormality. No intra-axial signal abnormality or localized mass effect. No intra-axial enhancement. Brain volume is within normal limits for age. No hydrocephalus. Brain stem and cerebellum:No intra-axial abnormalities. No pathologic contrast enhancement. Extra-axial:Normal flow void within vessels at the base of the brain. No subdural or epidural hematoma. No detectable subarachnoid hemorrhage No pathologic leptomeningeal or dural enhancement. Cavernous sinuses and basilar cisterns are normal. Skull:No calvarial lesions. No lytic lesion. No detectable fracture. Temporal bones:Mastoid sinuses are normal. No fluid or soft tissue intensity within either middle ear. Inner ear structures are normal Orbits, facial soft tissues:Globes are normal. No intraorbital abnormality. Facial soft tissues are negative IMPRESSION: Negative pre and postcontrast MRI scan of brain and posterior fossa Interpreted and Authenticated by: Pravin Salvador 03/15/20
[2020-03-15] MEDS ORDERED: GADOBENATE DIMEGLUMINE 15 ML/VIAL IV ONE (13:15)
[2020-03-15] MEDS ORDERED: PROMETHAZINE 25 MG/ML VIAL IV PRN (17:42)
[2020-03-15] MEDS: PANTOPRAZOLE 40 MG VIAL IV SCH (20:00)
[2020-03-15] MEDS: SENNOSIDES/DOCUSATE SODIUM 1 TAB TABLET PO SCH (21:04)
[2020-03-15] MEDS: METOCLOPRAMIDE 10 MG/2 ML VIAL IV PRN (23:29)
[2020-03-16] MEDS: LACTATED RINGERS 1,000 ML IV SCH ×4 (00:39→18:02)
[2020-03-16] MEDS: 0.9 % SODIUM CHLORIDE 10 ML SYRINGE IV SCH ×4 (02:06→21:57)
[2020-03-16] MEDS: ONDANSETRON 4 MG/2 ML VIAL IV PRN ×2 (02:06→08:49)
[2020-03-16] MEDS: CEFEPIME 2 GM VIAL IV SCH ×3 (05:21→21:50)
[2020-03-16] MEDS: METOCLOPRAMIDE 10 MG/2 ML VIAL IV PRN (05:36)
--- NOTE | 2020-03-16 08:17 | XRay Report ---
INDICATION: Interval Change TECHNIQUE: AP portable upright chest x-ray COMPARISON: Previous chest x-rays dated 03/14/2020, 04/15/2011 FINDINGS: Lungs:Lungs are negative. No focal pulmonary parenchymal infiltrate or mass Heart, vascular:No significant cardiomegaly. Pulmonary vascularity is normal. No pulmonary edema or pulmonary congestion Mediastinum, maureen:No mediastinal widening. No hilar mass Pleura:No pleural fluid. No pleural-based mass or calcification Skeletal:Negative. IMPRESSION: 1. Negative AP chest x-ray 2. No interval change since 03/14/2020 Interpreted and Authenticated by: Pravin Salvador 03/16/20
[2020-03-16] MEDS: DOCUSATE SODIUM 100 MG CAPSULE PO SCH ×2 (08:46→21:29)
[2020-03-16] MEDS: MULTIVIT,THER IRON,CA,FA & MIN 1 TABLET PO SCH (08:46)
[2020-03-16] MEDS: levETIRAcetam 500 MG in 0.9 % SODIUM CHLORIDE 100 ML IV SCH (08:49)
[2020-03-16] MEDS: PANTOPRAZOLE 40 MG VIAL IV SCH (08:49)
[2020-03-16] MEDS ORDERED: VANCOMYCIN 1,500 MG in 0.9 % SODIUM CHLORIDE 500 ML IV SCH (09:00)
[2020-03-16 09:14] LABS: Basophils # (Auto) 0.04 K/mcL (0.00-0.20); Basophils % (Auto) 0.4 % (0.0-2.0); Eosinophils # (Auto) 0.02 K/mcL (0.00-0.70); Eosinophils % (Auto) 0.2 % (0.0-7.0); Hematocrit 40.5 % (41.0-55.0); Hemoglobin 13.3 g/dL (13.5-16.5); Lymphocytes # (Auto) 2.18 K/mcL (1.50-4.80); Lymphocytes % (Auto) 21.6 % (15.0-49.0); Mean Corpuscular HGB Conc 32.8 g/dL (31.0-36.0); Mean Platelet Volume 9.1 fL (7.4-10.4); Monocytes # (Auto) 0.92 K/mcL (0.10-0.90); Monocytes % (Auto) 9.1 % (1.0-12.0); Neutrophils % (Auto) 68.7 % (38.0-78.0); Platelet Count 303 K/mcL (140-440); RBC 4.55 M/mcL (4.50-5.90); Red Cell Distribution Width 12.7 % (11.5-14.5); WBC 10.1 K/mcL (4.5-11.0)
[2020-03-16] MEDS ORDERED: CYANOCOBALAMIN 1,000 MCG/ML VIAL IM ONE (09:44)
[2020-03-16 09:47] LABS: ALT/SGPT 28 U/L (<40); AST/SGOT 34 U/L (<40); Albumin 3.9 gm/dL (3.2-5.2); Albumin/Globulin Ratio 1.7 (1.0-2.3); Alkaline Phosphatase 54 U/L (39-117); Bilirubin,Direct 0.2 mg/dL (<0.3); Bilirubin,Total 0.9 mg/dL (0.1-1.0); Blood Urea Nitrogen 13 mg/dL (6-20); Calcium 8.8 mg/dL (8.6-10.4); Carbon Dioxide 28 mmol/L (22-30); Chloride 97 mmol/L (96-108); Globulin 2.3 gm/dL (2.2-3.7); Glomerular Filtration Rate 101; Glucose 85 mg/dL (70-105); Lactate Dehydrogenase 265 U/L (135-225); Phosphorous 1.6 mg/dL (2.5-4.5); Triglycerides 72 mg/dL (<150); Uric Acid 6.1 mg/dL (2.5-8.0)
[2020-03-16] MEDS ORDERED: VANCOMYCIN PER PHARMACY IV SCH ×2 (09:56→17:57)
--- NOTE | 2020-03-16 09:56 | Internal Med Progress Note ---
SUBJECTIVE Subjective Patient information: Note initiated : 03/16/20 at 9:51 am Service Date, if different from initiated Date: [] Patient: Lefty Kam 29 y/o M admitted on 03/14/20 for constipation and weakness. Chief Complaint: [] Interval history: History of present illness: Mr. Kam is a 29 year old M who works in [employer]. He is in his baseline state of health until the onset of symptoms that started roughly 5 to 6 days ago with increasing nausea, abdominal pain vomiting. He also is endorses associated low-grade feve r, chills. He was evaluated at [place] on the and was found to have a white count over 17.6 however without negative abdominal imaging he was discharged home following initial treatment. He however continued to deteriorate with worsening symptoms, loss of appetite, weakness lightheadedness dizziness he presents to the ER the second time today. Initial work-up was consistent with leukocytosis/elevated LFTs and bilirubin. Abdominal ultrasound was unremarkable. He denies substance abuse. Denies bloody stool, bloody emesis, headache or photophobia. Subsequently hospitalist service was consulted At the time of my evaluation patient is anxious. He was able to endorse history as above. He denies recent travel other than [place] Den[place] sick contacts. Denies changes in medications or taking [id number] new medications. Patient was thereafter admitted to unit for evaluation of sepsis/elevated bilirubin. Shortly after admission patient passed out in the bathroom and was noted by staff with generalized tonic-clonic seizure. Patient was moved to ICU. Started on Ativan 4 mg load along with Keppra/oral suctioning. Stat labs were ordered. CT head/chest imaging/ABG/vital profile. 2 g magnesium/calcium i nfusion. Patient responded well and became seizure-free after a brief episode. He is currently postictal 03/15-patient clinically improving with improved endorgan dysfunction including mental status/downtrending bilirubin/downtrending creatinine. Complains of urinary incontinence. Persistent nausea however denies photophobia headache or fever. Stable hemodynamics. CT head unremarkable for acute process. X-ray chest negative. White count downtrending now 11,000, sodium up to 131, potassi um 3.3 on replacement, bicarbonate at 32 hyperchloremic nongap acidosis secondary to excessive vomiting. 03/16-persistent nausea. Stable hemodynamics. Remains impulsive.White count down to 10,000. Complaining of headache, neck stiffness and photophobia. Lumbar puncture today. Also case discussed with surgery for upper endoscopy in light of recurrent emesis. MRI brain unremarkable, creatinine down to 1 LFTs normalized. Discontinue Keppra Constitutional Vitals: Vital Signs Temp Pulse Resp BP Pulse Ox 98.0 F 68 18 108/62 96 03/16/20 02:01 03/16/20 01:02 PST 03/16/20 04:02 03/16/20 04:02 03/16/20 04:02 Period Temp Pulse Resp BP Sys/Mathias Pulse Ox Last 24 Hr 97.7 F-98.2 F 68-88 12-21 107-140/56-91 95-99 Intake and Output 03/15/20 03/16/20 03/16/20 22:59 05:59 13:59 Intake Total Output Total Balance Weight anxious Persistent nausea Nonlabored breathing No telemetry events Intake & Output: Intake & Output 03/15/20 03/16/20 03/16/20 22:59 05:59 13:59 Intake Total Output Total Balance Weight Intake: IV Lactated Ringers 1,000 ml @ 75 mls/hr IV .[id number] OLGA Rx#: [id number] Keppra 500 mg In Sodium Chloride 0.9% 100 ml @ 200 mls/ hr IV Q12H OLGA Rx#:[id number] Oral IV - Manual Only Output: Void Amount Emesis Estimated Blood Loss Other: Urine Appearance Urine Color Urine Odor OBJ DATA Labs CBC & Chem 7: 03/16/20 05:17 03/16/20 05:17 Labs: Abnormal Lab Results 03/16/20 03/16/20 03/15/20 05:17 05:17 17:00 WBC Hgb 13.3 L Hct 40.5 L MCHC Neut % (Auto) Lymph % (Auto) King # (Auto) 0.92 H Absolute Neutrophils Sodium 131 L Potassium Chloride Carbon Dioxide Anion Gap BUN Creatinine Glucose Uric Acid Calcium Phosphorus 1.6 L Magnesium 2.7 H Total Bilirubin Direct Bilirubin AST ALT Lactate Dehydrogenase 265 H Albumin Globulin Urine Protein Urine Ketones Hyaline Casts Urine Mucus U Marijuana (THC) Screen 03/15/20 03/15/2020 12:55 08:05 04:10 WBC Hgb Hct MCHC Neut % (Auto) Lymph % (Auto) King # (Auto) Absolute Neutrophils Sodium 131 L 131 L 130 L Potassium Chloride Carbon Dioxide Anion Gap BUN Creatinine Glucose Uric Acid Calcium Phosphorus Magnesium Total Bilirubin Direct Bilirubin AST ALT Lactate Dehydrogenase Albumin Globulin Urine Protein Urine Ketones Hyaline Casts Urine Mucus U Marijuana (THC) Screen 03/15/20 03/15/20 03/15/20 04:10 04:10 00:12 WBC 11.2 H Hgb Hct 39.4 L MCHC Neut % (Auto) Lymph % (Auto) King # (Auto) 1.17 H Absolute Neutrophils 8.03 H Sodium 130 L 128 L Potassium Chloride 90 L Carbon Dioxide 32 H Anion Gap BUN 25 H Creatinine Glucose 121 H Uric Acid 8.3 H Calcium 8.4 L Phosphorus Magnesium 3.1 H Total Bilirubin 1.2 H Direct Bilirubin 0.3 H AST ALT Lactate Dehydrogenase Albumin Globulin 2.1 L Urine Protein Urine Ketones Hyaline Casts Urine Mucus U Marijuana (THC) Screen 03/14/20 03/14/20 03/14/20 22:00 21:09 18:53 WBC Hgb Hct MCHC Neut % (Auto) Lymph % (Auto) King # (Auto) Absolute Neutrophils Sodium 129 L 127 L Potassium 2.8 L* Chloride 84 L Carbon Dioxide Anion Gap BUN 30 H Creatinine 1.3 H Glucose 118 H Uric Acid 10.1 H Calcium 7.9 L Phosphorus Magnesium Total Bilirubin 1.5 H Direct Bilirubin 0.3 H AST 42 H ALT Lactate Dehydrogenase 244 H Albumin Globulin Urine Protein Urine Ketones Hyaline Casts Urine Mucus U Marijuana (THC) Screen Suspect positive A 03/14/20 03/14/20 03/14/20 13:20 12:15 12:15 WBC Hgb Hct MCHC Neut % (Auto) Lymph % (Auto) King # (Auto) Absolute Neutrophils Sodium 123 L Potassium 2.5 L* Chloride 71 L Carbon Dioxide 33 H Anion Gap 19.0 H BUN 40 H Creatinine 1.5 H Glucose 124 H Uric Acid Calcium Phosphorus Magnesium 2.6 H Total Bilirubin 2.2 H Direct Bilirubin AST 52 H ALT 42 H Lactate Dehydrogenase Albumin 5.3 H Globulin Urine Protein 100 A Urine Ketones 20 A Hyaline Casts 12 H Urine Mucus Few A U Marijuana (THC) Screen 03/14/20 12:15 WBC 15.3 H Hgb 17.2 H Hct MCHC 36.2 H Neut % (Auto) 78.9 H Lymph % (Auto) 11.7 L King # (Auto) 1.41 H Absolute Neutrophils 12.03 H Sodium Potassium Chloride Carbon Dioxide Anion Gap BUN Creatinine Glucose Uric Acid Calcium Phosphorus Magnesium Total Bilirubin Direct Bilirubin AST ALT Lactate Dehydrogenase Albumin Globulin Urine Protein Urine Ketones Hyaline Casts Urine Mucus U Marijuana (THC) Screen Meds: Medications Acetaminophen (Tylenol) 650 mg PO Q4-6HP PRN; Protocol PRN Reason: Per Pain Protocol/Fever > 101 Bisacodyl (Dulcolax) 10 mg VA Q2-3DAYS PRN PRN Reason: Constipation Cefepime HCl (Maxipime) 2 gm IV Q8H PENDING SALE TO [facility]; Protocol Last Admin: 03/16/20 05:21 Dose: 2 gm Documented by: Docusate Sodium (Colace) 100 mg PO BID PENDING SALE TO [facility] Last Admin: 03/16/20 08:46 Dose: Not Given Documented by: Potassium Chloride 40 meq/ (Dextrose) 520 mls @ 130 mls/hr IV UD PRN PRN Reason: K+ = or < 3.5 Last Infusion: 03/15/20 12:25 Dose: Infused Documented by: Acetaminophen (Ofirmev) 650 mg in 65 mls @ 130 mls/hr IV Q6HP PRN; Protocol PRN Reason: Per Pain Protocol/Fever > 101 Last Infusion: 03/14/20 18:10 Dose: Infused Documented by: Magnesium Sulfate (Magnesium Sulfate) 2 gm in 50 mls @ 50 mls/hr IV UD PRN PRN Reason: MG = or < 1.7 Levetiracetam 500 mg/ Sodium (Chloride) 105 mls @ 200 mls/hr IV Q12H PENDING SALE TO [facility] Last Admin: 03/16/20 08:49 Dose: 200 mls/hr Documented by: Lactated Ringer's (Lactated Ringers) 1,000 mls @ 75 mls/hr IV .[id number] PENDING SALE TO [facility] Last Admin: 03/16/20 09:10 Dose: Not Given Documented by: Iron Carb/Multivit/[place]/Folic Acid (Multivitamin W/Minerals) 1 tab PO DAILY PENDING SALE TO [facility] Last Admin: 03/16/20 08:46 Dose: Not Given Documented by: Melatonin (Melatonin 3mg Tablet) 3 mg PO HSP PRN PRN Reason: Insomnia Metoclopramide HCl (Reglan) 10 mg IV Q6HP PRN PRN Reason: Nausea And Vomiting Last Admin: 03/16/20 05:36 Dose: 10 mg Documented by: Ondansetron HCl (Zofran Odt) 4 mg SL Q4-6HP PRN; Protocol PRN Reason: Nausea And Vomiting Ondansetron HCl (Zofran) 4 mg IV Q4-6HP PRN; Protocol PRN Reason: Nausea And Vomiting Last Admin: 03/16/20 08:49 Dose: 4 mg Documented by: Pantoprazole Sodium (Protonix) 40 mg IV ACB PENDING SALE TO [facility] Last Admin: 03/16/20 08:49 Dose: 40 mg Documented by: Polyethylene Glycol (Miralax) 17 gm PO DAILYP PRN PRN Reason: Constipation Potassium Chloride (Klor-Con) 40 meq PO DAILYP PRN PRN Reason: K+ < 3.5 Last Admin: 03/15/20 08:07 Dose: 40 meq Documented by: Promethazine HCl (Phenergan) 12.5 mg IV Q4HP PRN PRN Reason: Nausea And Vomiting Senna/Docusate Sodium (Senna Plus Tablet) 1 tab PO HS PENDING SALE TO [facility] Last Admin: 03/15/20 21:04 Dose: 1 tab Documented by: Sodium Chloride (Saline Flush) 10 ml IV Q8 PENDING SALE TO [facility] Last Admin: 03/16/20 05:20 Dose: 10 ml Documented by: A/P Narrative A/P Narrative: * Persistent nausea vomiting. Rule out gastric outlet obstruction, upper endoscopy today. Surgery consulted. Abdominal imaging negative. * Generalized tonic-clonic seizure-MRI brain/CT head unremarkable. Discontinue Keppra. No further seizure activity. * Headache/photophobia. Rule out meningitis. Lumbar puncture today * Systemic inflammatory response syndrome unclear source-clinically resolved with normalization of white count. * Metabolic alkalosis secondary to excessive vomiting. Bicarb down to 28 from 33 * Acute change in mental status secondary to seizure/sepsis endorgan dysfunction. Clinically resolved * Hypokalemia resolved with replacement now at 3.7 * Hyponatremia likely secondary to solute loss from nausea vomiting. Sodium improved from 123-134. * Elevated bilirubin likely sepsis endorgan dysfunction, normalized * acute kidney injury likely sepsis endorgan dysfunction -resolved Plan * Lumbar puncture * Upper endoscopy * Discontinue Keppra * Discontinue antibiotics * Continue seizure watch CC time 35 minutes Time Spent With Patient Time: Total time spent is greater than 50% in coordination of care (as documented) at patient's floor/unit and/or counseling patient: QUALITY VTE Deep Vein Thrombosis/Pulmonary Embolism Present on Admission: No
--- NOTE | 2020-03-16 12:47 | XRay Report ---
INDICATION: AMS, R/o meningitis TECHNIQUE: Informed consent was obtained. Routine Betadine skin cleansing. 1% lidocaine injected subcutaneously and deep. An 18-gauge spinal needle was utilized. Lumbar puncture was performed at the L2-3 level. 10 mL of clear CSF removed. 12 seconds fluoroscopy utilized. IMPRESSION: 1. Fluoroscopic-guided lumbar puncture at L2-3 2. 10 mL clear CSF removed Interpreted and Authenticated by: Pravin Salvador 03/16/20
[2020-03-16 14:16] LABS: Glucose,CSF 75 mg/dL (40-70)
--- NOTE | 2020-03-16 15:03 | General Surgery Consult Note ---
HPI Data of Consult Consult date: 03/16/20 Requesting physician: Alden Carlson Primary Care Provider: Ruth Barajas Consult Narrative Patient Information: Note initiated : 03/16/20 at 3:02 pm Service Date, if different from initiated Date: [] Patient: Lefty Kam 29 y/o M admitted on 03/14/20 for constipation and weakness. Chief Complaint: [] Chief complaint: RECURRENT ABDOMINAL PAIN WITH NAUSEA AND VOMITING cc:: CC: Alden Carlson patient is evaluated because of recurrent nausea, vomiting and abdominal pain. He has had epigastric pain for quite some time but has progressed to the point where he has nausea and vomiting with any liquid or solid intake. He has also had migraine headaches and has had constipation. Patient had hypokalemia, hyponatremia, hyperbilirubinemia and evidence of acute renal injury on admission, but those values have significantly improved and his electrolytes are corrected. He still has significant retching and patient is scheduled for upper endoscopy. Constitutional Constitutional: Present anorexia, fatigue, fever(s), headache(s), lethargy, malaise, weakness and weight loss EENT Eyes: Absent loss of vision and photophobia Ears: Absent tinnitus Nose, mouth and throat: Present headache(s); Absent abnormal hearing and dysphagia Cardiovascular Cardiovascular: Present lightheadedness and palpatations; Absent irregular heart rhythm Respiratory Respiratory: Absent cough and dyspnea on exertion Gastrointestinal Gastrointestinal: Present abdominal pain, coffee ground emesis, cramping, hematemesis, nausea and vomiting Genitourinary Genitourinary: difficulty urinating and nocturia Musculoskeletal Musculoskeletal: Absent back pain, muscle weakness and numbness Integumentary Integumentary: Absent changing lesions, pruritus and rash Neurological Neurological: Present convulsions, dizziness, headache(s), syncope and weakness Psychiatric Psychiatric: Present anxiety and confusion; Absent memory loss Endocrine Endocrine: Absent excessive sweating and palpitations Hematologic/Lymphatic Hematologic/Lymphatic: Absent easy bleeding, easy bruising and lymphadenopathy Allergic/Immunologic Allergic/Immunologic: Present GI upset with certain foods; Absent throat swelling, itchy eyes, uticaria, wheezing and lip swelling PFSH PFSH All Active Problems (Updated 03/18/20 @ 13:34 by Laz Castillo MD) Nondiabetic gastroparesis (Acute) Nausea and vomiting in adult (Acute) Migraine headache (Acute) Shoulder pain (Acute) Nausea & vomiting (Acute) Abdominal pain (Acute) Constipation (Acute) Rib pain on right side (Acute) Acute hypokalemia (Acute) Acute hyponatremia (Acute) Hyperbilirubinemia (Acute) Acute renal failure (Acute) Acute dehydration (Acute) Medical History Migraine headache (Acute) Nausea and vomiting in adult (Acute) Social History smoking status: Never smoker MEDS/ALLERGIES Home Medications and Allergies Home Medications Medication Instructions Recorded Confirmed Type omeprazole 40 mg PO ACB 03/14/20 03/14/20 History metoclopramide HCl [Reglan] 5 mg PO Q6HP PRN #30 tab 03/18/20 Rx promethazine 12.5 mg PO TID PRN #20 tab 03/18/20 Rx Allergies Allergy/AdvReac Type Severity Reaction Status Date / Time penicillamine Allergy Unknown Unknown Verified 03/14/20 16:07 Physical Examination Vital Signs Vital signs: Temp Pulse Resp BP Pulse Ox 98.0 F 68 16 133/83 97 03/16/20 12:53 03/16/20 01:02 PST 03/16/20 12:53 03/16/20 12:53 03/16/20 12:53 General physical appearance General physical exam: moderate distress and moderate pain Eyes Eye exam: PERRL and normal ocular movement ENT ENT exam: no hearing loss and no congestion Head Head exam IM: Present atraumatic, normal inspection and normocephalic Neck Neck exam: no masses, no bruits, trachea midline and no lymphadenopathy Cardiovascular Cardiovascular exam IM: Present RRR, +S1, +S2 and tachycardia; Absent JVD Respiratory Respiratory exam: normal expansion, normal respiratory effort, clear to percussion and clear to auscultation Abdomen Abdomen: Present tender (EPIGASTRIC TENDERNESS) Integumentary Integumentary: Present no rash, no growths, no abnormal pigmentation and other Neurologic Neurologic: Present normal coordination, normal sensation, deep tendon reflexes (DTR'S ARE NORMAL), confused, memory loss and other Musculoskeletal Musculoskeletal: Present normal gait and normal posture Psychiatric Psychiatric: Present oriented to time, oriented to person, oriented to place, speech is normal and memory intact Results Labs Result diagrams: 03/17/20 05:08 03/17/20 05:08 Labs: Abnormal lab results 03/15/20 03/16/20 03/16/20 Range/Units 17:00 05:17 05:17 Hgb 13.3 L (13.5-16.5) g/dL Hct 40.5 L (41.0-55.0) % Collin # (Auto) 0.92 H (0.10-0.90) K/mcL Sodium 131 L (133-145) mmol/L Phosphorus 1.6 L (2.5-4.5) mg/dL Magnesium 2.7 H (1.6-2.5) mg/dL Lactate Dehydrogenase 265 H (135-225) U/L CSF Glucose (40-70) mg/dL 03/16/20 Range/Units 12:36 Hgb (13.5-16.5) g/dL Hct (41.0-55.0) % Collin # (Auto) (0.10-0.90) K/mcL Sodium (133-145) mmol/L Phosphorus (2.5-4.5) mg/dL Magnesium (1.6-2.5) mg/dL Lactate Dehydrogenase (135-225) U/L CSF Glucose 75 H (40-70) mg/dL Diabetes panel 03/15/20 03/16/20 Range/Units 17:00 05:17 Sodium 131 L 134 (133-145) mmol/L Potassium 3.7 (3.3-5.1) mmol/L Chloride 97 (96-108) mmol/L Carbon Dioxide 28 (22-30) mmol/L BUN 13 (6-20) mg/dL Creatinine 1.0 (0.7-1.2) mg/dL Glucose 85 (70-105) mg/dL Calcium 8.8 (8.6-10.4) mg/dL AST 34 (<40) U/L ALT 28 (<40) U/L Alkaline Phosphatase 54 (39-117) U/L Total Protein 6.2 (5.9-8.4) gm/dL Albumin 3.9 (3.2-5.2) gm/dL Triglycerides 72 (<150) mg/dL Calcium panel 03/16/20 Range/Units 05:17 Calcium 8.8 (8.6-10.4) mg/dL Phosphorus 1.6 L (2.5-4.5) mg/dL Albumin 3.9 (3.2-5.2) gm/dL Pituitary panel 03/15/20 03/16/20 Range/Units 17:00 05:17 Sodium 131 L 134 (133-145) mmol/L Potassium 3.7 (3.3-5.1) mmol/L Chloride 97 (96-108) mmol/L Carbon Dioxide 28 (22-30) mmol/L BUN 13 (6-20) mg/dL Creatinine 1.0 (0.7-1.2) mg/dL Glucose 85 (70-105) mg/dL Calcium 8.8 (8.6-10.4) mg/dL Adrenal panel 03/15/20 03/16/20 Range/Units 17:00 05:17 Sodium 131 L 134 (133-145) mmol/L Potassium 3.7 (3.3-5.1) mmol/L Chloride 97 (96-108) mmol/L Carbon Dioxide 28 (22-30) mmol/L BUN 13 (6-20) mg/dL Creatinine 1.0 (0.7-1.2) mg/dL Glucose 85 (70-105) mg/dL Calcium 8.8 (8.6-10.4) mg/dL Total Bilirubin 0.9 (0.1-1.0) mg/dL AST 34 (<40) U/L ALT 28 (<40) U/L Alkaline Phosphatase 54 (39-117) U/L Total Protein 6.2 (5.9-8.4) gm/dL Albumin 3.9 (3.2-5.2) gm/dL All other labs normal. A/P Assessment and plan (1) Nausea and vomiting in adult: Status: Acute (2) Abdominal pain: Status: Acute Qualifiers: Abdominal location: generalized Qualified Code(s): R10.84 - Generalized abdominal pain (3) Acute renal failure: Status: Acute Qualifiers: Acute renal failure type: unspecified Qualified Code(s): N17.9 - Acute kidney failure, unspecified (4) Acute dehydration: Status: Acute Narrative A/P Narrative: patient has been counseled for urgent upper endoscopy TO JENNIFER LUATEfor source of vomiting and possible hematemesis Time Spent With Patient Time: Total time spent is greater than 50% in coordination of care (as documented) at patient's floor/unit and/or counseling patient:
[2020-03-16] MEDS ORDERED: KETAMINE 100 MG/ML ML ONE (15:29)
[2020-03-16] MEDS ORDERED: PROPOFOL 200 MG/20 ML VIAL IV ONE (15:29)
[2020-03-16] MEDS ORDERED: ONDANSETRON 4 MG/2 ML VIAL ONE (15:29)
[2020-03-16] MEDS ORDERED: GLYCOPYRROLATE 0.2 MG/ML VIAL IV ONE (15:29)
[2020-03-16] MEDS ORDERED: LIDOCAINE HCL/PF 100 MG/5 ML SYRINGE IV ONE (15:29)
[2020-03-16] MEDS ORDERED: diphenhydrAMINE 50 MG/ML VIAL ONE (15:29)
[2020-03-16] MEDS ORDERED: MIDAZOLAM 5 MG/5 ML VIAL ONE (15:29)
[2020-03-16] MEDS ORDERED: fentaNYL 100 MCG/2 ML VIAL IV ONE (15:29)
--- NOTE | 2020-03-16 15:54 | Brief Operative Note ---
Brief Operative Note Date of procedure: 03/16/20 Pre-op diagnosis: recurrent nausea and vomiting; hematemesis Post-op diagnosis: other (gastroparesis with distal esophagitis) Procedure: esophagogastroduodenoscopy Grafts/Implants: No Anesthesia: other (general) Findings: TURBID MILLS FLUID POOL IN STOMACH AND ESOPHAGUS EXTENDING UP TO MIDDLE 1/3 OF ESOPHAGUS; HEALING LINEAR INFLAMMATION OF DISTAL ESOPHAGUS EXTENDING TO GE JUNCTION ; SMALL REDDENED INFLAMMED AREA AT GE JUNCTION; REDUCED PERISTALSIS OF ENTIRE STOMACH PYLORUS IS WIDELY PATENT; NORMAL DUODENUM OUT TO 4TH PORTION ; NO BLEEDING Complications: none Surgeon: Laz Castillo Specimens Removed/Pathology: none sent Condition: stable Disposition: ICU
[2020-03-16 17:48] LABS: Red Blood Cell,CSF 0 /cumm (0-1)
[2020-03-16 17:49] LABS: Nucleated Cells,CSF 1 /cumm (0-5)
[2020-03-16 17:51] LABS: Appearance,CSF Clear; Nucleated Cells,CSF 1 /cumm (0-5); Red Blood Cell,CSF 0 /cumm (0-1)
[2020-03-16] MEDS ORDERED: POLYETHYLENE GLYCOL 3350 17 GM PACKET PO PRN (17:57)
[2020-03-16] MEDS ORDERED: PROMETHAZINE 25 MG/ML VIAL IV PRN (17:57)
[2020-03-16] MEDS ORDERED: POTASSIUM CHLORIDE 40 MEQ in DEXTROSE 5% IN WATER 500 ML IV PRN (17:57)
[2020-03-16] MEDS ORDERED: ACETAMINOPHEN 650 MG/65 ML BOTTLE IV PRN (17:57)
[2020-03-16] MEDS ORDERED: GADOBENATE DIMEGLUMINE 15 ML/VIAL IV ONE (17:57)
[2020-03-16] MEDS ORDERED: MELATONIN 3 MG TABLET PO PRN (17:57)
[2020-03-16] MEDS ORDERED: POTASSIUM CHLORIDE 20 MEQ PACKET PO PRN (17:57)
[2020-03-16] MEDS ORDERED: ONDANSETRON 4 MG ODT TABLET SL PRN (17:57)
[2020-03-16] MEDS ORDERED: ONDANSETRON 4 MG/2 ML VIAL IV PRN (17:57)
[2020-03-16] MEDS ORDERED: BISACODYL 10 MG SUPP.RECT PR PRN (17:57)
[2020-03-16] MEDS ORDERED: MAGNESIUM SULFATE 2 GM/50 ML BAG IV PRN (17:57)
[2020-03-16] MEDS ORDERED: ACETAMINOPHEN 325 MG TABLET PO PRN (17:57)
[2020-03-16] MEDS ORDERED: METOCLOPRAMIDE 10 MG/2 ML VIAL IV SCH (18:00)
[2020-03-16] MEDS: METOCLOPRAMIDE 10 MG/2 ML VIAL IV SCH (18:02)
[2020-03-16] MEDS ORDERED: SENNOSIDES/DOCUSATE SODIUM 1 TAB TABLET PO SCH (21:00)
[2020-03-16] MEDS: VANCOMYCIN 1,500 MG in 0.9 % SODIUM CHLORIDE 500 ML IV SCH (21:16)
[2020-03-16] MEDS ORDERED: POTASSIUM PHOSPHATE 40 MEQ in DEXTROSE 5% IN WATER 500 ML IV ONE (21:44)
[2020-03-16] MEDS ORDERED: POTASSIUM PHOSPHATE 66 MEQ/15 ML VIAL IV ONE ×2 (22:23→22:38)
[2020-03-17] MEDS: METOCLOPRAMIDE 10 MG/2 ML VIAL IV SCH ×4 (00:37→17:25)
[2020-03-17 05:57] LABS: Basophils # (Auto) 0.04 K/mcL (0.00-0.20); Basophils % (Auto) 0.5 % (0.0-2.0); Eosinophils # (Auto) 0.16 K/mcL (0.00-0.70); Eosinophils % (Auto) 1.9 % (0.0-7.0); Hematocrit 38.4 % (41.0-55.0); Lymphocytes # (Auto) 2.62 K/mcL (1.50-4.80); Lymphocytes % (Auto) 30.6 % (15.0-49.0); Mean Cell Volume 87.3 fL (80.0-100.0); Mean Corpuscular HGB Conc 33.9 g/dL (31.0-36.0); Mean Platelet Volume 8.9 fL (7.4-10.4); Monocytes # (Auto) 0.69 K/mcL (0.10-0.90); Monocytes % (Auto) 8.1 % (1.0-12.0); Neutrophils % (Auto) 58.9 % (38.0-78.0); Platelet Count 283 K/mcL (140-440); Red Cell Distribution Width 12.4 % (11.5-14.5); WBC 8.6 K/mcL (4.5-11.0)
[2020-03-17] MEDS: CEFEPIME 2 GM VIAL IV SCH (06:29)
[2020-03-17] MEDS: 0.9 % SODIUM CHLORIDE 10 ML SYRINGE IV SCH ×3 (06:29→22:00)
[2020-03-17 06:45] LABS: ALT/SGPT 28 U/L (<40); AST/SGOT 28 U/L (<40); Albumin 3.7 gm/dL (3.2-5.2); Albumin/Globulin Ratio 1.8 (1.0-2.3); Alkaline Phosphatase 50 U/L (39-117); Bilirubin,Direct 0.2 mg/dL (<0.3); Bilirubin,Total 0.9 mg/dL (0.1-1.0); Blood Urea Nitrogen 10 mg/dL (6-20); Calcium 8.5 mg/dL (8.6-10.4); Carbon Dioxide 27 mmol/L (22-30); Chloride 97 mmol/L (96-108); Globulin 2.1 gm/dL (2.2-3.7); Glomerular Filtration Rate 115; Glucose 91 mg/dL (70-105); Lactate Dehydrogenase 221 U/L (135-225); Phosphorous 2.8 mg/dL (2.5-4.5); Triglycerides 80 mg/dL (<150); Uric Acid 4.9 mg/dL (2.5-8.0)
[2020-03-17] MEDS ORDERED: PANTOPRAZOLE 40 MG VIAL IV SCH (07:30)
[2020-03-17] MEDS: DOCUSATE SODIUM 100 MG CAPSULE PO SCH ×2 (08:24→21:09)
[2020-03-17] MEDS ORDERED: MULTIVIT,THER IRON,CA,FA & MIN 1 TABLET PO SCH (09:00)
--- NOTE | 2020-03-17 09:15 | Internal Med Progress Note ---
SUBJECTIVE Subjective Patient information: Note initiated : 03/17/20 at 9:11 am Service Date, if different from initiated Date: [] Patient: Lefty Kam 29 y/o M admitted on 03/14/20 for constipation and weakness. Chief Complaint: [] Interval history: History of present illness: Mr. Kam is a 29 year old M who works in [employer]. He is in his baseline state of health until the onset of symptoms that started roughly 5 to 6 days ago with increasing nausea, abdominal pain vomiting. He also is endorses associated low-grade feve r, chills. He was evaluated at [place] on the and was found to have a white count over 17.6 however without negative abdominal imaging he was discharged home following initial treatment. He however continued to deteriorate with worsening symptoms, loss of appetite, weakness lightheadedness dizziness he presents to the ER the second time today. Initial work-up was consistent with leukocytosis/elevated LFTs and bilirubin. Abdominal ultrasound was unremarkable. He denies substance abuse. Denies bloody stool, bloody emesis, headache or photophobia. Subsequently hospitalist service was consulted At the time of my evaluation patient is anxious. He was able to endorse history as above. He [place] recent travel other than [place] Denies sick contacts. Denies changes in medications or taking [id number] new medications. Patient was thereafter admitted to unit for evaluation of sepsis/elevated bilirubin. Shortly after admission patient passed out in the bathroom and was noted by staff with generalized tonic-clonic seizure. Patient was moved to ICU. Started on Ativan 4 mg load along with Keppra/oral suctioning. Stat labs were ordered. CT head/chest imaging/ABG/vital profile. 2 g magnesium/calcium i nfusion. Patient responded well and became seizure-free after a brief episode. He is currently postictal 03/15-patient clinically improving with improved endorgan dysfunction including mental status/downtrending bilirubin/downtrending creatinine. Complains of urinary incontinence. Persistent nausea however denies photophobia headache or fever. Stable hemodynamics. CT head unremarkable for acute process. X-ray chest negative. White count downtrending now 11,000, sodium up to 131, potassi um 3.3 on replacement, bicarbonate at 32 hyperchloremic nongap acidosis secondary to excessive vomiting. 03/16-persistent nausea. Stable hemodynamics. Remains impulsive.White count down to 10,000. Complaining of headache, neck stiffness and photophobia. Lumbar puncture today. Also case discussed with surgery for upper endoscopy in light of recurrent emesis. MRI brain unremarkable, creatinine down to 1 LFTs normalized. Discontinue Keppra 03/17-negative CSF studies. Much improved labs. Normalized renal function. Normal white count. Persistent nausea at every attempt to take oral diet. Continue antiemetics and conservative management. Will likely discharge in 24 hours pending clinical improvement. No further seizure episodes. Can be transferred to medical floor. Constitutional Vitals: Vital Signs Temp Pulse Resp BP Pulse Ox 97.4 F 61 20 115/69 99 03/17/20 04:00 03/16/20 16:00 03/16/20 20:00 03/17/20 05:16 03/17/20 05:16 Period Temp Pulse Resp BP Sys/Mathias Pulse Ox Last 24 Hr 97.4 F-98.0 F 56-62 14-20 90-133/49-83 95-100 Intake and Output 03/16/20 03/17/20 03/17/20 21:59 05:59 13:59 Intake Total 1120 1369.0909 720 Output Total 1000 1150 1250 Balance 258 481.2855 -530 Weight 100.788 kg Alert anxious Nonlabored breathing No telemetry events Intake & Output: Intake & Output 03/16/20 03/17/20 03/17/20 21:59 05:59 13:59 Intake Total 1120 1369.0909 720 Output Total 1000 1150 1250 Balance 494 276.7466 -530 Weight 100.788 kg Intake: Nourishment/Supplement quantity 120 360 (ml) IV 1000 1009.0909 Lactated Ringers 1,000 ml @ 75 1000 mls/hr IV .[id number] [facility] Rx#: [id number] Potassium Phosphate 40 Meq In 509.0909 Dextrose 5% in Water 500 ml @ 127.273 mls/hr IV ONCE ONE Rx#: [id number] Vancomycin 1,500 mg In Sodium 500 Chloride 0.9% 500 ml @ 333.3 mls/hr IV Q12H [facility] Rx#: [id number] Oral 720 Output: Void Amount 1000 1150 900 Emesis 350 Other: Meal Popsicle Popsicle Breakfast Percent of Meal Consumed 100% 100% 100% Feeding Ability Independent Urine Appearance Clear Clear Clear Urine Color Dark Yellow Bright Yellow Bright Yellow Urine Odor Normal Normal Stool Size Small Stool Color Brown Stool Consistency Liquid # Bowel Movements 1 OBJ DATA Labs CBC & Chem 7: 03/17/20 05:08 03/17/20 05:08 Labs: Abnormal Lab Results 03/17/20 03/17/20 03/16/20 05:08 05:08 12:36 WBC RBC 4.40 L Hgb 13.0 L Hct 38.4 L MCHC Neut % (Auto) Lymph % (Auto) [place] # (Auto) Absolute Neutrophils Sodium Potassium Chloride Carbon Dioxide Anion Gap BUN Creatinine Glucose Uric Acid Calcium 8.5 L Phosphorus Magnesium Total Bilirubin Direct Bilirubin AST ALT Lactate Dehydrogenase Total Protein 5.8 L Albumin Globulin 2.1 L Urine Protein Urine Ketones Hyaline Casts Urine Mucus CSF Glucose 75 H U Marijuana (THC) Screen 03/16/20 03/16/20 03/15/20 05:17 05:17 17:00 WBC RBC Hgb 13.3 L Hct 40.5 L MCHC Neut % (Auto) Lymph % (Auto) [place] # (Auto) 0.92 H Absolute Neutrophils Sodium 131 L Potassium Chloride Carbon Dioxide Anion Gap BUN Creatinine Glucose Uric Acid Calcium Phosphorus 1.6 L Magnesium 2.7 H Total Bilirubin Direct Bilirubin AST ALT Lactate Dehydrogenase 265 H Total Protein Albumin Globulin Urine Protein Urine Ketones Hyaline Casts Urine Mucus CSF Glucose U Marijuana (THC) Screen 03/15/20 03/15/20 03/15/20 12:55 08:05 04:10 WBC RBC Hgb Hct MCHC Neut % (Auto) Lymph % (Auto) [place] # (Auto) Absolute Neutrophils Sodium 131 L 131 L 130 L Potassium Chloride Carbon Dioxide Anion Gap BUN Creatinine Glucose Uric Acid Calcium Phosphorus Magnesium Total Bilirubin Direct Bilirubin AST ALT Lactate Dehydrogenase Total Protein Albumin Globulin Urine Protein Urine Ketones Hyaline Casts Urine Mucus CSF Glucose U Marijuana (THC) Screen 03/15/20 03/15/20 03/15/20 04:10 04:10 00:12 WBC 11.2 H RBC Hgb Hct 39.4 L MCHC Neut % (Auto) Lymph % (Auto) [place] # (Auto) 1.17 H Absolute Neutrophils 8.03 H Sodium 130 L 128 L Potassium Chloride 90 L Carbon Dioxide 32 H Anion Gap BUN 25 H Creatinine Glucose 121 H Uric Acid 8.3 H Calcium 8.4 L Phosphorus Magnesium 3.1 H Total Bilirubin 1.2 H Direct Bilirubin 0.3 H AST ALT Lactate Dehydrogenase Total Protein Albumin Globulin 2.1 L Urine Protein Urine Ketones Hyaline Casts Urine Mucus CSF Glucose U Marijuana (THC) Screen 03/14/20 03/14/20 03/14/20 22:00 21:09 18:53 WBC RBC Hgb Hct MCHC Neut % (Auto) Lymph % (Auto) [place] # (Auto) Absolute Neutrophils Sodium 129 L 127 L Potassium 2.8 L* Chloride 84 L Carbon Dioxide Anion Gap BUN 30 H Creatinine 1.3 H Glucose 118 H Uric Acid 10.1 H Calcium 7.9 L Phosphorus Magnesium Total Bilirubin 1.5 H Direct Bilirubin 0.3 H AST 42 H ALT Lactate Dehydrogenase 244 H Total Protein Albumin Globulin Urine Protein Urine Ketones Hyaline Casts Urine Mucus CSF Glucose U Marijuana (THC) Screen Suspect positive A 03/14/20 03/14/20 03/14/20 13:20 12:15 12:15 WBC RBC Hgb Hct MCHC Neut % (Auto) Lymph % (Auto) [place] # (Auto) Absolute Neutrophils Sodium 123 L Potassium 2.5 L* Chloride 71 L Carbon Dioxide 33 H Anion Gap 19.0 H BUN 40 H Creatinine 1.5 H Glucose 124 H Uric Acid Calcium Phosphorus Magnesium 2.6 H Total Bilirubin 2.2 H Direct Bilirubin AST 52 H ALT 42 H Lactate Dehydrogenase Total Protein Albumin 5.3 H Globulin Urine Protein 100 A Urine Ketones 20 A Hyaline Casts 12 H Urine Mucus Few A CSF Glucose U Marijuana (THC) Screen 03/14/20 12:15 WBC 15.3 H RBC Hgb 17.2 H Hct MCHC 36.2 H Neut % (Auto) 78.9 H Lymph % (Auto) 11.7 L [place] # (Auto) 1.41 H Absolute Neutrophils 12.03 H Sodium Potassium Chloride Carbon Dioxide Anion Gap BUN Creatinine Glucose Uric Acid Calcium Phosphorus Magnesium Total Bilirubin Direct Bilirubin AST ALT Lactate Dehydrogenase Total Protein Albumin Globulin Urine Protein Urine Ketones Hyaline Casts Urine Mucus CSF Glucose U Marijuana (THC) Screen Meds: Medications Acetaminophen (Tylenol) 650 mg PO Q4-6HP PRN; Protocol PRN Reason: Per Pain Protocol/Fever > 101 Bisacodyl (Dulcolax) 10 mg LA Q2-3DAYS PRN PRN Reason: Constipation Cefepime HCl (Maxipime) 2 gm IV Q8H [facility]; Protocol Last Admin: 03/17/20 06:29 Dose: 2 gm Documented by: Docusate Sodium (Colace) 100 mg PO BID [facility] Last Admin: 03/17/20 08:24 Dose: 100 mg Documented by: Acetaminophen (Ofirmev) 650 mg in 65 mls @ 130 mls/hr IV Q6HP PRN; Protocol PRN Reason: Per Pain Protocol/Fever > 101 Lactated Ringer's (Lactated Ringers) 1,000 mls @ 75 mls/hr IV .[id number] [facility] Last Admin: 03/16/20 18:02 Dose: Not Given Documented by: Magnesium Sulfate (Magnesium Sulfate) 2 gm in 50 mls @ 50 mls/hr IV UD PRN PRN Reason: MG = or < 1.7 Potassium Chloride 40 meq/ (Dextrose) 520 mls @ 130 mls/hr IV UD PRN PRN Reason: K+ = or < 3.5 Vancomycin HCl 1,500 mg/ (Sodium Chloride) 500 mls @ 333.3 mls/hr IV Q12H [facility] Last Infusion: 03/16/20 23:47 Dose: Infused Documented by: Iron Carb/Multivit/[place]/Folic Acid (Multivitamin W/Minerals) 1 tab PO DAILY [facility] Last Admin: 03/17/20 08:24 Dose: 1 tab Documented by: Melatonin (Melatonin 3mg Tablet) 3 mg PO HSP PRN PRN Reason: Insomnia Metoclopramide HCl (Reglan) 10 mg IV Q6 [facility] Last Admin: 03/17/20 06:29 Dose: 10 mg Documented by: Ondansetron HCl (Zofran Odt) 4 mg SL Q4-6HP PRN; Protocol PRN Reason: Nausea And Vomiting Ondansetron HCl (Zofran) 4 mg IV Q4-6HP PRN; Protocol PRN Reason: Nausea And Vomiting Last Admin: 03/17/20 08:27 Dose: 4 mg Documented by: Pantoprazole Sodium (Protonix) 40 mg IV ACB [facility] Last Admin: 03/17/20 07:51 Dose: 40 mg Documented by: Polyethylene Glycol (Miralax) 17 gm PO DAILYP PRN PRN Reason: Constipation Potassium Chloride (Klor-Con) 40 meq PO DAILYP PRN PRN Reason: K+ < 3.5 Promethazine HCl (Phenergan) 12.5 mg IV Q4HP PRN PRN Reason: Nausea And Vomiting Senna/Docusate Sodium (Senna Plus Tablet) 1 tab PO HS [facility] Last Admin: 03/16/20 21:17 Dose: 1 tab Documented by: Sodium Chloride (Saline Flush) 10 ml IV Q8 [facility] Last Admin: 03/17/20 06:29 Dose: 10 ml Documented by: Vancomycin HCl (Vancomycin Per Pharmacy) 1 order IV UD [facility]; Protocol A/P Assessment and plan (1) Nausea and vomiting in adult: Status: Acute (2) Abdominal pain: Status: Acute Qualifiers: Abdominal location: generalized Qualified Code(s): R10.84 - Generalized abdominal pain (3) Acute renal failure: Status: Acute Qualifiers: Acute renal failure type: unspecified Qualified Code(s): N17.9 - Acute kidney failure, unspecified (4) Acute dehydration: Status: Acute Narrative A/P Narrative: * Persistent nausea vomiting. Negative EGD for outlet obstruction. On antiemetics. Likely hyperemesis secondary to marijuana use. Continue supportive management * Generalized tonic-clonic seizure-MRI brain/CT head unremarkable. LP no evidence of infection. DC antibiotics. Transfer to medical floor * Headache/photophobia. Negative LP. DC antibiotics. * Systemic inflammatory response syndrome-clinically resolved * Metabolic alkalosis secondary to excessive vomiting. Normalized. Bicarb down to 28 from 33 * Acute change in mental status secondary to seizure/sepsis endorgan dysfunction. Clinically resolved * Hypokalemia resolved with replacement now at 3.7 * Hyponatremia likely secondary to solute loss from nausea vomiting. Sodium improved from 123-134. * Elevated bilirubin likely sepsis endorgan dysfunction, normalized * acute kidney injury likely sepsis endorgan dysfunction -resolved Plan * Transfer to medical floor * DC antibiotics * Continue supportive management/antiemetics and crystalloids * Discharge likely in 24 hours Time Spent With Patient Time: Total time spent is greater than 50% in coordination of care (as documented) at patient's floor/unit and/or counseling patient: [facility]AL[facility] VTE Deep Vein Thrombosis/Pulmonary Embolism Present on Admission: No
[2020-03-17] MEDS: VANCOMYCIN 1,500 MG in 0.9 % SODIUM CHLORIDE 500 ML IV SCH ×2 (10:40→10:53)
[2020-03-17] MEDS ORDERED: ONDANSETRON 4 MG/2 ML VIAL IV PRN (10:41)
[2020-03-17] MEDS ORDERED: POTASSIUM CHLORIDE 40 MEQ in DEXTROSE 5% IN WATER 500 ML IV PRN (10:41)
[2020-03-17] MEDS ORDERED: ACETAMINOPHEN 650 MG/65 ML BOTTLE IV PRN (10:41)
[2020-03-17] MEDS ORDERED: ACETAMINOPHEN 325 MG TABLET PO PRN (10:41)
[2020-03-17] MEDS ORDERED: LACTATED RINGERS 1,000 ML IV SCH (10:41)
[2020-03-17] MEDS ORDERED: ONDANSETRON 4 MG ODT TABLET SL PRN (10:41)
[2020-03-17] MEDS ORDERED: ONDANSETRON 4 MG/2 ML VIAL ONE (10:41)
[2020-03-17] MEDS ORDERED: MAGNESIUM SULFATE 2 GM/50 ML BAG IV PRN (10:41)
[2020-03-17] MEDS ORDERED: POTASSIUM CHLORIDE 20 MEQ PACKET PO PRN (10:41)
[2020-03-17] MEDS ORDERED: PROMETHAZINE 25 MG/ML VIAL IV PRN (10:41)
[2020-03-17] MEDS ORDERED: POLYETHYLENE GLYCOL 3350 17 GM PACKET PO PRN (10:41)
[2020-03-17] MEDS: LACTATED RINGERS 1,000 ML IV SCH (10:43)
[2020-03-17] MEDS: diphenhydrAMINE 50 MG/ML VIAL IV PRN ×2 (12:12→16:21)
[2020-03-17] MEDS ORDERED: CAPSAICIN 0.025% CREAM.TOP 60GM TOPICAL STA (13:48)
--- NOTE | 2020-03-17 13:51 | Discharge Summary ---
Discharge Provider Provider Patient information: Note initiated : 03/17/20 at 1:50 pm Service Date, if different from initiated Date: [] Patient: Lefty Kam 29 y/o M admitted on 03/14/20 for constipation and weakness. Chief Complaint: [] Date of admission: 03/14/20 16:24 Discharge date: 03/18/20 Primary care physician: Ruth Barajas Consults: 03/14/20 15:55 Consult to Physician [CONS] Stat Comment: Consulting Provider: Alden Carlson Reason For Exam: Physician to Consult 03/16/20 09:38 Consult to Physician [CONS] Routine Comment: Consulting Provider: Laz Castillo Reason For Exam: Physician to Consult Discharge Meds Discharge Medications Home Medications omeprazole 40 mg PO ACB 03/14/20 [History Confirmed 03/14/20 Last Taken 03/14/20] COURSE Hospital Course Hospital course: History of present illness: Mr. Kam is a 29 year old M who works in [employer]. He is in his baseline state of health until the onset of symptoms that started roughly 5 to 6 days ago with increasing nausea, abdominal pain vomiting. He also is endorses associated low-grade fever, chills. He was evaluated at [place] on the and was found to have a white count over 17.6 however without negative abdominal imaging he was discharged home following initial treatment. He however continued to deteriorate with worsening symptoms, loss of appetite, weakness lightheadedness dizziness he presents to the ER the second time today. Initial work-up was consistent with leukocytosis/elevated LFTs and bilirubin. Abdominal ultrasound was unremarkable. He denies substance abuse. Denies bloody stool, bloody emesis, headache or photophobia. Subsequently hospitalist service was consulted At the time of my evaluation patient is anxious. He was able to endorse history as above. He denies recent travel other than visiting [place] Denies sick contacts. Denies changes in medications or taking [id number] new medications. Patient was thereafter admitted to unit for evaluation of sepsis/elevated bilirubin. Shortly after admission patient passed out in the bathroom and was noted by staff with generalized tonic-clonic seizure. Patient was moved to ICU. Started on Ativan 4 mg load along with Keppra/oral suctioning. Stat labs were ordered. CT head/chest imaging/ABG/vital profile. 2 g magnesium/calcium infusion. Patient responded well and became seizure-free after a brief episode. He is currently postictal 03/15-patient clinically improving with improved endorgan dysfunction including mental status/downtrending bilirubin/downtrending creatinine. Complains of urinary incontinence. Persistent nausea however denies photophobia headache or fever. Stable hemodynamics. CT head unremarkable for acute process. X-ray chest negative. White count downtrending now 11,000, sodium up to 131, potassium 3.3 on replacement, bicarbonate at 32 hyperchloremic nongap acidosis secondary to excessive vomiting. 03/16-persistent nausea. Stable hemodynamics. Remains impulsive.White count down to 10,000. Complaining of headache, neck stiffness and photophobia. Lumbar puncture today. Also case discussed with surgery for upper endoscopy in light of recurrent emesis. MRI brain unremarkable, creatinine down to 1 LFTs normalized. Discontinue Keppra 03/17-negative CSF studies. Much improved labs. Normalized renal function. Normal white count. Persistent nausea at every attempt to take oral diet. Continue antiemetics and conservative management. Will likely discharge in 24 hours pending clinical improvement. No further seizure episodes. Can be transferred to medical floor. 03/18 Feeling a little better today. Hoping to go home. CT abdomen pelvis unremarkable. Stable for discharge A/P Narrative: Persistent nausea vomiting. Negative EGD for outlet obstruction. On antiemetics. Likely hyperemesis secondary to marijuana use. Continue supportive management Generalized tonic-clonic seizure-MRI brain/CT head unremarkable. LP no evidence of infection. DC antibiotics. Transfer to medical floor Headache/photophobia. Negative LP. DC antibiotics. Systemic inflammatory response syndrome-clinically resolved Metabolic alkalosis secondary to excessive vomiting. Normalized. Bicarb down to 28 from 33 Acute change in mental status secondary to seizure/sepsis endorgan dysfunction. Clinically resolved Hypokalemia resolved with replacement now at 3.7 Hyponatremia likely secondary to solute loss from nausea vomiting. Sodium improved from 123-134. Elevated bilirubin likely sepsis endorgan dysfunction, normalized acute kidney injury likely sepsis endorgan dysfunction -resolved Discharge diagnosis: Hyperemesis syndrome seizure headache SIRS acute kidney injury alkalosis Secondary discharge diagnosis: Electrolyte abnormalities Time Spent with Patient Time attestation: Total time spent providing and/or coordinating discharge services: Time spent: Greater than 30 minutes EXAM Constitutional Vitals: Temp Pulse Resp BP Pulse Ox 98.1 F 65 16 160/90 99 03/17/20 12:02 03/17/20 12:02 03/17/20 12:02 03/17/20 12:02 03/17/20 12:02 Discharge Data Data Completed and Pending Labs on day of discharge: Labs from last 24 hours 03/17/20 03/17/20 03/17/20 08:14 05:08 05:08 WBC 8.6 RBC 4.40 L Hgb 13.0 L Hct 38.4 L MCV 87.3 MCH 29.5 MCHC 33.9 RDW 12.4 Plt Count 283 MPV 8.9 Neut % (Auto) 58.9 Lymph % (Auto) 30.6 [place] % (Auto) 8.1 Eos % (Auto) 1.9 Baso % (Auto) 0.5 Lymph # (Auto) 2.62 [place] # (Auto) 0.69 Eos # (Auto) 0.16 Baso # (Auto) 0.04 Absolute Neutrophils 5.06 Sodium 134 Potassium 3.7 Chloride 97 Carbon Dioxide 27 Anion Gap 10.0 BUN 10 Creatinine 0.9 GFR Calculation 115 Glucose 91 Uric Acid 4.9 Calcium 8.5 L Phosphorus 2.8 Magnesium 2.3 Total Bilirubin 0.9 Direct Bilirubin 0.2 GGT 23 AST 28 ALT 28 Alkaline Phosphatase 50 Lactate Dehydrogenase 221 Total Protein 5.8 L Albumin 3.7 Globulin 2.1 L Albumin/Globulin Ratio 1.8 Triglycerides 80 CSF Source CSF Appearance CSF Color CSF RBC CSF Total Nucleated Auto CSF Neutrophils CSF Lymphocytes CSF Glucose CSF Total Protein Vancomycin Trough 9.5 03/16/20 03/16/20 12:36 12:36 WBC RBC Hgb Hct MCV MCH MCHC RDW Plt Count MPV Neut % (Auto) Lymph % (Auto) [place] % (Auto) Eos % (Auto) Baso % (Auto) Lymph # (Auto) [place] # (Auto) Eos # (Auto) Baso # (Auto) Absolute Neutrophils Sodium Potassium Chloride Carbon Dioxide Anion Gap BUN Creatinine GFR Calculation Glucose Uric Acid Calcium Phosphorus Magnesium Total Bilirubin Direct Bilirubin GGT AST ALT Alkaline Phosphatase Lactate Dehydrogenase Total Protein Albumin Globulin Albumin/Globulin Ratio Triglycerides CSF Source Tube 4 TNP CSF Appearance Clear TNP CSF Color Colorless TNP CSF RBC 0 0 CSF Total Nucleated Auto 1 1 CSF Neutrophils TNP CSF Lymphocytes TNP CSF Glucose 75 H CSF Total Protein 35.0 Vancomycin Trough Preliminary micro results at discharge 03/14/20 18:53 Blood Culture - Preliminary Blood 03/14/20 21:09 Blood Culture - Preliminary Blood 03/16/20 12:36 Gram Stain - Preliminary Cerebral Spinal Fluid - Cerebral Spinal Fluid Discharge Plan Patient/Caregiver Discharge Instructions Activity: increase activity as tolerated Diet: Regular Diet Prescriptions: Continued omeprazole 20 MG capsule,delayed release(DR/EC) 40 mg PO ACB RF: 0 Follow Up Plan Follow up with: Ruth Barajas ARNP [Primary Care Provider] - Patient Disposition: Home, Self-Care Prognosis: Undetermined Overall status at discharge: patient is progressing back to baseline Discharge Orders: Discharge Order (Routine); Ordered 03/18/20 Ordered By: Reno Gómez [facility] VTE Deep Vein Thrombosis/Pulmonary Embolism Present on Admission: No
--- NOTE | 2020-03-17 16:30 | General Surgery Progress Note ---
SUBJECTIVE Subjective Patient information: Note initiated : 03/17/20 at 4:25 pm Service Date, if different from initiated Date: [] Patient: Lefty Kam 29 y/o M admitted on 03/14/20 for constipation and weakness. Chief Complaint: [] Principal diagnosis: recurrent nausea and vomiting; persistent heartburn; reflux esophagitis Interval history: patient states that he is slightly improved however he still has significant nausea with vomiting. He states that he has emesis with any by mouth intake. He has constant retching while he's been examined, but he does not bring up any liquid. He has not had any more seizures since admission. His electrolytes are significantly improved and renal function is improved. It's interesting that he has nausea in spite of metoclopramide, promethazine, Benadryl.he does complain of substernal and epigastric discomfort Constitutional Vitals: Vital Signs Temp Pulse Resp BP Pulse Ox 99.6 F H 81 17 138/82 100 03/17/20 16:00 03/17/20 16:00 03/17/20 16:00 03/17/20 16:00 03/17/20 16:00 Period Temp Pulse Resp BP Sys/Mathias Pulse Ox Last 24 Hr 97.4 F-99.6 F 56-81 16-20 90-160/49-93 95-100 Intake and Output 03/17/20 03/17/20 03/17/20 05:59 13:59 21:59 Intake Total 1369.0909 720 1000 Output Total 1150 2625 Balance 219.0909 -1905 1000 Intake & Output: Intake & Output 03/17/20 03/17/20 03/17/20 05:59 13:59 21:59 Intake Total 1369.0909 720 1000 Output Total 1150 2625 Balance 219.0909 -1905 1000 Intake: Nourishment/Supplement quantity 360 (ml) IV 1009.0909 1000 Lactated Ringers 1,000 ml @ 75 1000 mls/hr IV .[id number] [facility] Rx#: [id number] Potassium Phosphate 40 Meq In 509.0909 Dextrose 5% in Water 500 ml @ 127.273 mls/hr IV ONCE ONE Rx#: [id number] Vancomycin 1,500 mg In Sodium 500 Chloride 0.9% 500 ml @ 333.3 mls/hr IV Q12H [facility] Rx#: [id number] Oral 720 Output: Void Amount 1150 1675 Emesis 950 Other: Meal Popsicle Breakfast Percent of Meal Consumed 100% 100% Feeding Ability Independent Urine Appearance Clear Clear Urine Color Bright Yellow Straw Urine Odor Normal Stool Size Small Stool Color Brown Stool Consistency Liquid # Bowel Movements 1 Head Head exam: Present atraumatic, normal inspection and normocephalic Eye Eye exam: Present EOMI; Absent scleral icterus Pupils: Present normal accommodation and PERRL ENT ENT exam: Present mucous membranes moist, normal exam and normal oropharynx Neck Neck exam: Present full ROM; Absent lymphadenopathy, tenderness and thyromegaly Respiratory Respiratory exam: Present normal respiratory exam and CTAB; Absent rales, rhonchi and wheezes Cardiovascular Cardiovascular exam: Present normal rate and rhythm, RRR, +S1 and +S2; Absent JVD GI/Abdominal GI/Abdominal exam: Present normal bowel sounds, distended, guarding (epigastric area) and hyperactive bowel sounds; Absent organomegaly Extremities Exam Extremities exam: Present full ROM, normal inspection and neurovascular intact; Absent pedal edema Back Exam Back exam: Present full ROM and normal inspection Neurological Exam Neurological exam: Present CN II-XII intact, normal gait and oriented X3; Absent motor sensory deficit Psychiatric Psychiatric exam: Present anxious, depressed and flat affect Skin Skin exam: Present intact and normal color; Absent rash A/P Assessment and plan (1) Nausea and vomiting in adult: Status: Acute (2) Nondiabetic gastroparesis: Status: Acute (3) Acute renal failure: Status: Acute Qualifiers: Acute renal failure type: unspecified Qualified Code(s): N17.9 - Acute kidney failure, unspecified (4) Constipation: Status: Acute Qualifiers: Constipation type: unspecified constipation type Qualified Code(s): K59.00 - Constipation, unspecified Narrative A/P Narrative: CT of abdomen and pelvis with IV contrast in the a.m. Time Spent With Patient Time: Total time spent is greater than 50% in coordination of care (as documented) at patient's floor/unit and/or counseling patient:
[2020-03-17] MEDS ORDERED: MELATONIN 3 MG TABLET PO PRN (21:00)
[2020-03-17] MEDS ORDERED: SENNOSIDES/DOCUSATE SODIUM 1 TAB TABLET PO SCH (21:00)
[2020-03-18] MEDS: METOCLOPRAMIDE 10 MG/2 ML VIAL IV SCH ×3 (00:21→12:02)
[2020-03-18] MEDS: 0.9 % SODIUM CHLORIDE 10 ML SYRINGE IV SCH (05:49)
[2020-03-18] MEDS ORDERED: IOPAMIDOL 100 ML BOTTLE IV ONE (07:16)
[2020-03-18] MEDS ORDERED: PANTOPRAZOLE 40 MG VIAL IV SCH (07:30)
--- NOTE | 2020-03-18 07:45 | Internal Med Progress Note ---
SUBJECTIVE Subjective Patient information: Note initiated : 03/18/20 at 7:42 am Service Date, if different from initiated Date: [] Patient: Lefty Kam 29 y/o M admitted on 03/14/20 for constipation and weakness. Chief Complaint: [] Principal diagnosis: recurrent nausea and vomiting; persistent heartburn; reflux esophagitis Interval history: History of present illness: Mr. Kam is a 29 year old M who works in [place]. He is in his baseline state of health until the onset of symptoms that started roughly 5 to 6 days ago with increasing nausea, abdominal pain vomiting. He also is endorses associated low-grade fever, chills. He was evaluated at [place] on the and was found to have a white count over 17.6 however without negative abdominal imaging he was discharged home following initial treatment. He however continued to deteriorate with worsening symptoms, loss of appetite, weakness lightheadedness dizziness he presents to the ER the second time today. Initial work-up was consistent with leukocytosis/elevated LFTs and bilirubin. Abdominal ultrasound was unremarkable. He denies substance abuse. Denies bloody stool, bloody emesis, headache or photophobia. Subsequently hospitalist service was consulted At the time of my evaluation patient is anxious. He was able to endorse history as above. [place] recent travel other [place] sick contacts. Denies changes in medications or taking [id number] new medications. Patient was thereafter admitted to unit for evaluation of sepsis/elevated bilirubin. Shortly after admission patient passed out in the bathroom and was noted by staff with generalized tonic-clonic seizure. Patient was moved to ICU. Started on Ativan 4 mg load along with Keppra/oral suctioning. Stat labs were ordered. CT head/chest imaging/ABG/vital profile. 2 g magnesium/calcium infusion. Patient responded well and became seizure-free after a brief episode. He is currently postictal 03/15-patient clinically improving with improved endorgan dysfunction including mental status/downtrending bilirubin/downtrending creatinine. Complains of urinary incontinence. Persistent nausea however denies photophobia headache or fever. Stable hemodynamics. CT head unremarkable for acute process. X-ray chest negative. White count downtrending now 11,000, sodium up to 131, potassium 3.3 on replacement, bicarbonate at 32 hyperchloremic nongap acidosis secondary to excessive vomiting. 03/16-persistent nausea. Stable hemodynamics. Remains impulsive.White count down to 10,000. Complaining of headache, neck stiffness and photophobia. Lumbar puncture today. Also case discussed with surgery for upper endoscopy in light of recurrent emesis. MRI brain unremarkable, creatinine down to 1 LFTs normalized. Discontinue Keppra 03/17-negative CSF studies. Much improved labs. Normalized renal function. Normal white count. Persistent nausea at every attempt to take oral diet. Continue antiemetics and conservative management. Will likely discharge in 24 h ours pending clinical improvement. No further seizure episodes. Can be transferred to medical floor. 03/18 Feeling a little better today. Hoping to go home. Had a CT abdomen pelvis this morning. Review of Systems: denies headache/fever/chills//chest or abdominal pain/cough/dyspnea/diarrhea. Otherwise see above. Constitutional Vitals: Vital Signs Temp Pulse Resp BP Pulse Ox 97.9 F 65 14 105/64 98 03/18/20 04:29 03/18/20 04:29 03/18/20 04:29 03/18/20 04:29 03/18/20 04:29 Period Temp Pulse Resp BP Sys/Mathias Pulse Ox Last 24 Hr 97.9 F-99.6 F 56-81 14-17 105-160/64-93 97-100 Intake and Output 03/17/20 03/18/20 03/18/20 21:59 05:59 13:59 Intake Total 1000 0 Output Total 300 400 Balance 700 0 -400 Weight 95.617 kg Intake & Output: Intake & Output 03/17/20 03/18/20 03/18/20 21:59 05:59 13:59 Intake Total 1000 0 Output Total 300 400 Balance 700 0 -400 Weight 95.617 kg Intake: IV 1000 Lactated Ringers 1,000 ml @ 75 1000 mls/hr IV .[id number] [facility] Rx#: [id number] Oral 0 Output: Void Amount 400 Emesis 300 Exam: General: Alert, Awake, No acute Distress Eyes/N/T: EOMI, Head/Neck: neck supple, CV: RRR, No murmurs, Pulm: Clear b/l, no wheezing/rhonchi/rales Abd: soft, nontender, +BS x4 Ext: no clubbing/cyanosis/edema Neuro: Alert, no focal deficits, moves all extremities, Skin: warm/dry OBJ DATA Labs CBC & Chem 7: 03/17/20 05:08 03/17/20 05:08 Labs: Abnormal Lab Results 03/17/20 03/17/20 03/16/20 05:08 05:08 12:36 RBC 4.40 L Hgb 13.0 L Hct 38.4 L [place] # (Auto) Sodium Calcium 8.5 L Phosphorus Magnesium Lactate Dehydrogenase Total Protein 5.8 L Globulin 2.1 L CSF Glucose 75 H 03/16/20 03/16/20 03/15/20 05:17 05:17 17:00 RBC Hgb 13.3 L Hct 40.5 L [place] # (Auto) 0.92 H Sodium 131 L Calcium Phosphorus 1.6 L Magnesium 2.7 H Lactate Dehydrogenase 265 H Total Protein Globulin CSF Glucose 03/15/20 03/15/20 12:55 08:05 RBC Hgb Hct [place] # (Auto) Sodium 131 L 131 L Calcium Phosphorus Magnesium Lactate Dehydrogenase Total Protein Globulin CSF Glucose Meds: Medications Acetaminophen (Tylenol) 650 mg PO Q4-6HP PRN; Protocol PRN Reason: Per Pain Protocol/Fever > 101 Diphenhydramine HCl (Benadryl) 25 mg IV Q4HP PRN PRN Reason: Nausea Last Admin: 03/17/20 16:21 Dose: 25 mg Documented by: Docusate Sodium (Colace) 100 mg PO BID OLGA Last Admin: 03/17/20 21:09 Dose: Not Given Documented by: Magnesium Sulfate (Magnesium Sulfate) 2 gm in 50 mls @ 50 mls/hr IV UD PRN PRN Reason: MG = or < 1.7 Potassium Chloride 40 meq/ (Dextrose) 520 mls @ 130 mls/hr IV UD PRN PRN Reason: K+ = or < 3.5 Acetaminophen (Ofirmev) 650 mg in 65 mls @ 130 mls/hr IV Q6HP PRN; Protocol PRN Reason: Per Pain Protocol/Fever > 101 Iron Carb/Multivit/Tehama/Folic Acid (Multivitamin W/Minerals) 1 tab PO DAILY [facility] Melatonin (Melatonin 3mg Tablet) 3 mg PO HSP PRN PRN Reason: Insomnia Metoclopramide HCl (Reglan) 10 mg IV Q6 [facility] Last Admin: 03/18/20 05:49 Dose: 10 mg Documented by: Ondansetron HCl (Zofran Odt) 4 mg SL Q4-6HP PRN; Protocol PRN Reason: Nausea And Vomiting Ondansetron HCl (Zofran) 4 mg IV Q4-6HP PRN; Protocol PRN Reason: Nausea And Vomiting Pantoprazole Sodium (Protonix) 40 mg IV ACB [facility] Polyethylene Glycol (Miralax) 17 gm PO DAILYP PRN PRN Reason: Constipation Potassium Chloride (Klor-Con) 40 meq PO DAILYP PRN PRN Reason: K+ < 3.5 Promethazine HCl (Phenergan) 12.5 mg IV Q4HP PRN PRN Reason: Nausea And Vomiting Senna/Docusate Sodium (Senna Plus Tablet) 1 tab PO HS [facility] Last Admin: 03/17/20 21:09 Dose: Not Given Documented by: Sodium Chloride (Saline Flush) 10 ml IV Q8 [facility] Last Admin: 03/18/20 05:49 Dose: 10 ml Documented by: A/P Narrative A/P Narrative: A/P Narrative: *Persistent nausea vomiting. Negative EGD for outlet obstruction. On antiemetics. Likely hyperemesis secondary to marijuana use. Continue supportive management *Generalized tonic-clonic seizure-MRI brain/CT head unremarkable. LP no evidence of infection. DC antibiotics. Transfer to medical floor *Headache/photophobia. Negative LP. DC antibiotics. *Systemic inflammatory response syndrome-clinically resolved *Metabolic alkalosis secondary to excessive vomiting. Normalized. Bicarb down to 28 from 33 *Acute change in mental status secondary to seizure/sepsis endorgan dysfunction. Clinically resolved *Hypokalemia resolved with replacement now at 3.7 *Hyponatremia likely secondary to solute loss from nausea vomiting. Sodium improved from 123-134. *Elevated bilirubin likely sepsis endorgan dysfunction, normalized *acute kidney injury likely sepsis endorgan dysfunction -resolved Plan: -DC antibiotics -Continue supportive management/antiemetics and crystalloids -Dr. Castillo following -pending CT a/p -ppx:scd/ambulation Time Spent With Patient Time: Total time spent is greater than 50% in coordination of care (as documented) at patient's floor/unit and/or counseling patient: QUALITY VTE Deep Vein Thrombosis/Pulmonary Embolism Present on Admission: No
[2020-03-18] MEDS: DOCUSATE SODIUM 100 MG CAPSULE PO SCH (08:36)
[2020-03-18] MEDS ORDERED: MULTIVIT,THER IRON,CA,FA & MIN 1 TABLET PO SCH (09:00)
--- NOTE | 2020-03-18 10:32 | Cat Scan Report ---
History: Abdominal pain with severe nausea, vomiting and constipation TECHNIQUE: The patient was imaged following intravenous contrast scanning during the portal venous phase from the diaphragm to the symphysis pubis. Sagittal and coronal reformats were created. The radiation exposure was limited using dose reduction technology. FINDINGS: The lung bases are clear. The liver and spleen are normal in size and homogeneous. The gallbladder and bile ducts are normal. There is no evidence of mass or inflammation the pancreas. The adrenals and kidneys are normal. There is an incidental 1 cm cyst in the lower third of the right kidney. Aorta and inferior vena cava are normal. There is mild circumferential thickening of the wall of the fundus of the stomach. This is probably normal collapsed mucosal folds and less likely due to gastritis. The duodenum and jejunum and ileum are normal in caliber and noninflamed. The appendix is noninflamed. Normal amount of air and stool are present in the colon and there is no evidence of fecal impaction, inflammatory bowel disease or diverticulitis. No mass, abscess, ascites or lymphadenopathy are present within the abdomen or pelvis. No abnormality seen in the lateral prostate are seminal vesicles area IMPRESSION: Nonspecific mild thickening of the wall of the stomach. The study is otherwise normal. Interpreted and Authenticated by: Eugene Spence 03/18/20
--- NOTE | 2020-03-18 13:35 | General Surgery Progress Note ---
SUBJECTIVE Subjective Patient information: Note initiated : 03/18/20 at 1:31 pm Service Date, if different from initiated Date: [] Patient: Lefty Kam 29 y/o M admitted on 03/14/20 for constipation and weakness. Chief Complaint: [] Principal diagnosis: recurrent nausea and vomiting; persistent heartburn; reflux esophagitis Interval history: patient states that he feels much better. He is tolerating diet without nausea or vomiting. He has had multiple bowel movements and passing flatus. CT performed earlier today looks very good, except for some thickening of the abdominal wall. There is no major dilation of the stomach, small bowel, or esophagus. Patient is clinically stable for discharge home. Constitutional Vitals: Vital Signs Temp Pulse Resp BP Pulse Ox 98.3 F 61 18 105/67 98 03/18/20 12:00 03/18/20 12:00 03/18/20 12:00 03/18/20 12:00 03/18/20 12:00 Period Temp Pulse Resp BP Sys/Mathias Pulse Ox Last 24 Hr 97.9 F-99.6 F 61-81 14-20 105-141/64-93 97-100 Intake and Output 03/17/20 03/18/20 03/18/20 21:59 05:59 13:59 Intake Total 1000 0 Output Total 300 400 Balance 700 0 -400 Weight 210 lb 12.8 oz Intake & Output: Intake & Output 03/17/20 03/18/20 03/18/20 21:59 05:59 13:59 Intake Total 1000 0 Output Total 300 400 Balance 700 0 -400 Weight 210 lb 12.8 oz Intake: IV 1000 Lactated Ringers 1,000 ml @ 75 1000 mls/hr IV .[id number] [facility] Rx#: [id number] Oral 0 Output: Void Amount 400 Emesis 300 Other: Stool Consistency Liquid # Voids 1 Head Head exam: Present atraumatic, normal inspection and normocephalic Eye Eye exam: Present EOMI; Absent scleral icterus Pupils: Present normal accommodation and PERRL ENT ENT exam: Present mucous membranes moist, normal exam and normal oropharynx Neck Neck exam: Present full ROM; Absent lymphadenopathy, tenderness and thyromegaly Respiratory Respiratory exam: Present normal respiratory exam and CTAB; Absent rales, rhonchi and wheezes Cardiovascular Cardiovascular exam: Present normal rate and rhythm, RRR, +S1 and +S2; Absent JVD GI/Abdominal GI/Abdominal exam: Present normal bowel sounds, distended, guarding (epigastric area) and hyperactive bowel sounds; Absent organomegaly Extremities Exam Extremities exam: Present full ROM, normal inspection and neurovascular intact; Absent pedal edema Back Exam Back exam: Present full ROM and normal inspection Neurological Exam Neurological exam: Present CN II-XII intact, normal gait and oriented X3; Absent motor sensory deficit Psychiatric Psychiatric exam: Present anxious, depressed and flat affect Skin Skin exam: Present intact and normal color; Absent rash A/P Assessment and plan (1) Nondiabetic gastroparesis: Status: Acute (2) Nausea and vomiting in adult: Status: Acute (3) Migraine headache: Status: Acute Qualifiers: Migraine type: chronic without aura Status migrainosus presence: without status migrainosus Intractability: not intractable Qualified Code(s): G43.709 - Chronic migraine without aura, not intractable, without status migrainosus (4) Constipation: Status: Acute Qualifiers: Constipation type: unspecified constipation type Qualified Code(s): K59.00 - Constipation, unspecified Narrative A/P Narrative: patient is clinically stable and is ready for discharge. Patient should have discharge prescriptions for metoclopramide, promethazine, PPI. He can be followed up with his primary care provider. He is also advised to discontinue her use of the high potency THC. Because of the relationship between his THC use and his nausea and vomiting. Time Spent With Patient Time: Total time spent is greater than 50% in coordination of care (as documented) at patient's floor/unit and/or counseling patient:
--- NOTE | 2020-03-19 13:25 | Operative Note ---
DATE OF OPERATION: 03/16/2020 PREOPERATIVE DIAGNOSIS: Recurrent nausea and vomiting with hematemesis. POSTOPERATIVE DIAGNOSIS: Gastroparesis with distal esophagitis. PROCEDURE: Esophagogastroduodenoscopy. FINDINGS: Turbid gao fluid pooled in the esophagus extending up to the middle one-third of the esophagus with healing linear inflammatory ulcers of the distal esophagus extending to the GE junction, small red and inflamed area at the GE junction, but without ulceration, reduced peristalsis of the esophagus and stomach, pylorus was widely patent, normal duodenum. No evidence of bleeding. DESCRIPTION OF PROCEDURE: Under general anesthesia, the patient was turned to the left lateral decubitus position. Time-out procedure was carried out as per protocol. Bite block was placed. Endoscope was introduced into the retropharynx and esophagus. There was turbid gao fluid in the esophagus starting at about 20 cm and extending down to the GE junction. There were healing linear inflammatory ulcers of the distal esophagus extending to the GE junction. There was a small reddened area at the GE junction, but there was no evidence of active bleeding. Peristalsis of the esophagus and stomach were decreased. The large pool of fluid was suctioned and I was able to get a good view of the stomach. There was slight inflammation of the gastric folds leading down to the pylorus. The pylorus opened appropriately. Scope was advanced to the fourth portions without any abnormalities seen. There was no old blood or fresh blood in the duodenum. Scope was pulled back and retroflex view was done. No other inflammatory changes were noted. Because of the ulcerations of the distal esophagus with all the inflammatory changes, I did not do biopsies since this was due to constant reflux. Scope was removed. The patient tolerated the procedure well. LCS:kathy Job ID: [id number] Doc ID: [id number] Laz Castillo M.D.
[2020-03-25 18:08] LABS: Cannabinoid Confirmation Positive
== END 2020-03-18 13:15 | disposition home or self-care (01) | DRG 871 ==
LOC: ED 11:34 → ICU 16:24 → MEDSUR 03-17 16:13
PROVIDERS: ADMIT Internal Medicine; ATTEND Internal Medicine